=== PATIENT | female | born 1950 | race African-American/Black ===

== ENCOUNTER 2017-11-23 08:56 | Day surgery (SDC) | payer MEDICARE ==
[2017-11-23 09:11] LABS: Absolute Lymphocytes (CBC) 1.9 K/uL (0.7-4.9); Absolute Monocytes 0.6 K/uL (0.1-1.3); Absolute Neutrophil 5.1 K/uL (1.8-8.0); Basophils % 0.4 % (0-1.3); Eosinophils % 2.7 % (0-4.4); Hematocrit 38.3 % (36.0-45.0); Lymphocytes % 23.9 % (15.3-44.8); MCH 26.7 pg (27.0-35.0); MCV 78.4 fL (80-100); MPV 8.7 fL (7.6-11.3); Monocytes % 7.8 % (3.3-12.3); RBC Red Blood Cell Count 4.88 M/uL (3.86-4.86)
[2017-11-23] MEDS ORDERED: CEFAZOLIN/SWI 1gm 1 GM/10 ML SYR ONE (09:29)
[2017-11-23] MEDS ORDERED: Ringers Lactate 1,000 ML IV ONE (09:29)
--- NOTE | 2017-11-23 09:52 | EKG ---
Test Date: 2017-11-23 Test Time: 08:44:15 [employer] Advisor: AMINTA MEASUREMENT RESULTS: Intervals: Rate: 65 NH: 144 QRSD: 88 QT: 416 QTc: 432 [place]: P: 14 NH: 144 QRS: 1 T: 21 INTERPRETIVE STATEMENTS: Normal sinus rhythm Normal ECG No previous ECG available for comparison Electronically Signed On 11-23-17 09:51:30 CDT by Alexander Fraser
[2017-11-23] MEDS ORDERED: MIDAZOLAM HCL 2 MG/2 ML INJ ONE (09:53)
[2017-11-23] MEDS ORDERED: LIDOCAINE 2% MPF 5 ML VIAL ONE (09:53)
[2017-11-23] MEDS ORDERED: ROCURONIUM 50 MG/5 ML VIAL IV ONE (09:53)
[2017-11-23] MEDS ORDERED: FENTANYL CITR 250 MCG/5 ML ONE (09:53)
[2017-11-23] MEDS ORDERED: PROPOFOL 200 MG/20 ML VIAL IV ONE (09:53)
[2017-11-23 09:54] LABS: BUN Blood Urea Nitrogen 15 mg/dL (6-20); Bicarbonate 31 mEq/L (21-31); Glucose Level 105 mg/dL (65-120); Potassium 4.4 mEq/L (3.6-5.0); Sodium Level 141 mEq/L (135-145)
[2017-11-23] MEDS ORDERED: GLYCOPYRROLATE 0.2 MG/ML SYR ONE (10:38)
[2017-11-23] MEDS ORDERED: NEOSTIGMINE 1 MG/ML -5 ML SYRINGE ONE (10:39)
[2017-11-23] MEDS: MEPERIDINE HCL 50 MG/ML AMP ONE ×3 (10:51→11:10)
--- NOTE | 2017-11-23 11:08 | RAD REPORT ---
EXAM DESCRIPTION: RADOP - Outpt Chest Pa/Lat (2 Views) - 11/23/2017 8:52 am CLINICAL HISTORY: Abdominal pain, asthma. COMPARISON: 01/25/2014 FINDINGS: The lungs are clear. The heart is mildly to moderately enlarged in size. No displaced frac tures. Degenerative changes are present both shoulders. Thoracic spondylosis is noted.
[2017-11-23] MEDS: KETOROLAC 30 MG/ML INJ ONE ×2 (11:10→11:15)
[2017-11-23] MEDS ORDERED: HYDROCODONE/APAP 7.5/325 MG TAB ONE (12:57)
--- NOTE | 2017-11-23 13:20 | OP ---
Date of Procedure: 11/23/2017 Surgeon: Regino Melgar MD Postoperative Diagnosis: Nonhealing wound, abdomen, suture granuloma. Postoperative Diagnoses: Nonhealing wound, abdomen, suture granuloma. Procedure Performed: Excision of suture granuloma. Estimated Blood Loss: Minimal. Specimen: Suture granuloma. Finding: As above. Anesthesia: General. Complications: None. Disposition: The patient tolerated the procedure in stable condition, taken to Recovery in good gene ral condition. Operative Note: The patient was brought to the OR and placed in supine position. General anesthesia begun. The patient prepped in the usual sterile fashion. Marcaine 0.5% infiltrated for local. A 1 5-blade was used to make a 4 x 1 cm incision to excise this nonhealing wound down through the subcuta neous tissue and sent to Pathology as specimen. When the specimen was cut, it appeared to be a sutur e granuloma. Wound irrigated. Bleeding controlled with cautery. The flaps created and 2-0 chromic used to approximate the subcutaneous tissue and close the skin. Sterile dressing was applied. The patient was awakened and taken to [facility] in good general condition. AIRAM/GI Voice ID: [id number] Report ID: [id number]
[2017-11-23 13:25] VITALS: BP 133/78; TEMP 98; O2SAT 97
--- NOTE | 2017-11-23 13:25 | DS ---
Discharge Note: The patient will go to Day Surgery and home when stable. Disposition: Home. Condition: Stable. Discharge Instructions: Resume home medications and diet. Activity as tolerated. No heavy lifting. Remove outer dressing in 2 days. Shower. Keep the Steri-Strips on at all times. Followup my offi ce in a week. Call for appointment. Tylenol No. 3 one table q.4 p.r.n. pain, Keflex 500 mg p.o. q.6 h. AIRAM/GI Voice ID: [id number] Report ID: [id number]
== END 2017-11-23 13:11 | disposition home or self-care (01) ==
LOC: OR 08:56
PROVIDERS: ATTEND Surgery
PROC: 0JB80ZZ Excision of Abdomen Subcutaneous Tissue and Fascia, Open Approach (ICD-10-PCS; principal; 2017-11-23 10:00)
DX: L92.9 Granulomatous disorder of the skin and subcutaneous tissue, unspecified (principal); L98.499 Non-pressure chronic ulcer of skin of other sites with unspecified severity; E66.9 Obesity, unspecified; J45.909 Unspecified asthma, uncomplicated; I10 Essential (primary) hypertension; Z80.3 Family history of malignant neoplasm of breast; Z80.42 Family history of malignant neoplasm of prostate; Z80.0 Family history of malignant neoplasm of digestive organs
CPT/HCPCS: 10120; 36415; 71046; 80048; 85025; 88304; 93005; J0690; J2175; J2250; J2710

== ENCOUNTER 2018-02-27 18:50 | Inpatient (IN) | payer MEDICARE ==
[2018-02-27] MEDS ORDERED: Morphine 2 MG/2 ML SYR IV PRN (19:33)
[2018-02-27] MEDS ORDERED: ONDANSETRON 4 MG/2 ML VIAL IV PRN (19:33)
[2018-02-27 19:51] VITALS: BMI 42.2
[2018-02-27 19:56] LABS: Absolute Lymphocytes (CBC) 1.3 K/uL (0.7-4.9); Absolute Monocytes 1.1 K/uL (0.1-1.3); Absolute Neutrophil 11.8 K/uL (1.8-8.0); Basophils % 0.5 % (0-1.3); Eosinophils % 0.8 % (0-4.4); Hematocrit 36.6 % (36.0-45.0); Lymphocytes % 9.1 % (15.3-44.8); MCH 26.9 pg (27.0-35.0); MCV 78.9 fL (80-100); MPV 8.1 fL (7.6-11.3); Monocytes % 7.6 % (3.3-12.3); RBC Red Blood Cell Count 4.64 M/uL (3.86-4.86)
[2018-02-27 20:02] LABS: Protime INR 1.31
[2018-02-27 20:45] LABS: Urine Appearance CLOUDY; Urine Bilirubin NEGATIVE (NEG); Urine Blood 2+ (NEG); Urine Color DK YELLOW; Urine Glucose NEGATIVE (NEG); Urine Protein 1+ (NEG); Urine Specific Gravity 1.025 (1.005-1.030)
[2018-02-27 20:46] LABS: Albumin 3.2 g/dL (3.4-5.0); Bilirubin Total 0.5 mg/dL (0.2-1.0); Magnesium 2.8 mg/dL (1.8-2.4); Potassium 3.9 mmol/L (3.5-5.1); Protein, Total 8.1 g/dL (6.4-8.2); Thyroid Stimulating Hormone 1.62 uIU/mL (0.36-3.74)
[2018-02-27 20:52] LABS: Urine RBC 20-50 /HPF (NONE SEEN)
[2018-02-27 20:53] LABS: Urine Bacteria 20-50 /HPF (<20); Urine Culture Reflex Order NOT NEEDED
[2018-02-27] MEDS ORDERED: CEFEPIME 1 GM/VIAL IV SCH (21:00)
--- NOTE | 2018-02-27 21:07 | RAD REPORT ---
EXAM DESCRIPTION: RAD - Chest Pa And Lat (2 Views) - 02/27/2018 8:58 pm CLINICAL HISTORY: acute cholecystitis Chest pain. COMPARISON: CHEST PA AND LAT 2 VIEW dated 01/25/2014; CHEST PA AND LAT 2 VIEW dated 03/06/2012CHEST PA AND LAT 2 VIEW dated 01/25/2014; CHEST PA AND LAT 2 VIEW dated 03/06/2012; Outpt Chest Pa/Lat (2 Views) dated 11/23/2017 FINDINGS: Mild interstitial pulmonary edema is noted. The heart is mildly prominent size. No displac ed fractures. Moderate thoracic spondylosis. IMPRESSION: Mild CHF/ volume overload pattern.
[2018-02-27] MEDS ORDERED: MORPHINE 2 MG/ML SYR ONE (22:07)
[2018-02-27] MEDS ORDERED: CEFTRIAXONE/SWI 1gm 0 GM/0 ML SYR ONE (22:08)
[2018-02-27] MEDS ORDERED: CEFEPIME 1 GM/100 ML BAG IV ONE (22:13)
[2018-02-27] MEDS: D5 0.9 NS 1,000 ML IV SCH (22:25)
[2018-02-28] MEDS ORDERED: MORPHINE 2 MG/ML SYR ONE (03:32)
--- NOTE | 2018-02-28 04:13 | HP ---
Date of Admission: 02/27/2018 Chief Complaint: Fever, chills, abdominal pain. History Of Present Illness: A 67-year-old female patient, came into office with 3-4 days history of fever with chills and some right upper quadrant abdominal pain. Denies any cough, cold, or congestio n. No sore throat, no nausea, no vomiting, no diarrhea, no bleeding. Her pain has been intermittent . No aggravating or relieving factor, no radiation of pain. No other associated symptoms. After jonathan austin was evaluated in our office, she was admitted to the hospital with diagnosis of acute cholecystitis . Further appropriate testing was ordered for her. Allergies: NO KNOWN ALLERGIES. Medications: She takes losartan 50 mg p.o. daily, ProAir inhaler as needed. Review of Systems: GI: As mentioned above. Constitutional: As mentioned above. All other systems reviewed and negative. Social History: Negative for smoking, alcohol use. Family History: Significant for breast cancer and prostate cancer. Past Surgical History: Significant for surgery for cervical cancer in 1976, hernia repair, and carpa l tunnel release in 2016. Past Medical History: Significant for hypertension, hyperlipidemia, and mild intermittent asthma. Physical Examination: Vital Signs: Her temperature at office was 100.1 degrees Fahrenheit, pulse 102, respiratory rate 16, blood pressure 116/72, weight 231 pounds, height 61.5 inches. General: Awake, alert, oriented, not in distress. HEENT: Head atraumatic, normocephalic. Conjunctivae nonerythematous. Sclerae white. Mouth, no thr ush or edema noted. Ears/Nose, no mass, lesion, discharge noted. Neck: Supple. No JVD, lymph nodes, bruit, thyromegaly noted. Lungs: Bilateral good equal air entry. Clear to auscultation. No rhonchi. No rales. Heart: Normal heart sounds, no murmur or gallop. Abdomen: Soft. Bowel sounds normal. No guarding, rigidity, or distention. No hepatosplenomegaly. The patient does have right upper quadrant tenderness. No rebound tenderness. Extremities: No leg edema. No calf tenderness. Skin: No rash, ulcer, cellulitis. Lymphatics: No lymph node enlargement in neck, supraclavicular, infraclavicular region. Neuro: No focal neurological deficit. Chest: Unremarkable. External Genitalia: Deferred. Rectal: Deferred. Laboratory Data: Chest x-ray was reported as mild CHF pattern which I disagree with that clinically. The patient does not have any evidence of congestive heart failure. White count 14.4, hemoglobin 1 2.5, platelets 395. INR 1.31. Sodium 140, potassium 3.9, chloride 104, bicarb 30, BUN 15, creatinin e 0.90, glucose 96, magnesium 2.8. Liver function tests unremarkable. Amylase 48, lipase 87, TSH 1. 62, procalcitonin 0.23. Urinalysis; 3+ esterase, wbc loaded, bacteria 20-50, 2+ blood. Impression: 1.Acute cholecystitis. 2.Urinary tract infection. 3.Hypertension. 4.Hyperlipidemia. 5.Mild intermittent asthma. Plan: Admit the patient to hospital for further evaluation and management of this problem. The edison ent is appropriate for inpatient and is expected to spend 2 midnights in hospital. We will consult Kanwal Melgar from General Surgery. The patient will be on clear liquid diet today. Keep her n.p.o. afte r midnight. We will get abdominal ultrasound done tomorrow morning and start the patient on empiric IV antibiotics, cefepime. Pain medication will be ordered. SCD was ordered for DVT prophylaxis. I will see her tomorrow for followup. Details and plan of treatment di scussed with her. NELA/MODL Voice ID: [id number]
[2018-02-28] MEDS ORDERED: CEFEPIME 1 GM/100 ML BAG IV SCH ×2 (05:00→21:00)
[2018-02-28] MEDS ORDERED: PNEUMOCOCCAL VACCINE 0.5 ML IMVAC ONE (08:00)
--- NOTE | 2018-02-28 08:13 | RAD REPORT ---
EXAM DESCRIPTION: US - Abdomen Exam Complete - 02/28/2018 7:35 am CLINICAL HISTORY: Abdominal pain. acute cholecystitis COMPARISON: No comparisons FINDINGS: Diffusely heterogenous liver echotexture is seen. No focal liver lesions or intrahepatic b iliary dilatation is seen. The gallbladder contains a 9 mm nonshadowing stone or sludge ball. No gallbladder wall thickening or pericholecystic fluid is seen. Common bile duct is normal in caliber measuring 5 millimeters. Moderate right-sided hydronephrosis is seen. 2.7 x 2.5 cm left renal cyst is present. No left-sided h ydronephrosis present. The spleen is normal in size measuring 10-11 cm. The pancreas and aorta are obscured by bowel gas. The visualized aspects of the IVC are grossly normal. IMPRESSION: Moderate right hydronephrosis. Diffusely heterogenous liver echotexture likely indicating underlying chronic inflammation or fatty i nfiltration. 9 mm nonshadowing stone or sludge ball in the gallbladder without evidence of acute cholecystitis.
--- NOTE | 2018-02-28 10:56 | RAD REPORT ---
EXAM DESCRIPTION: CT - Stone Protocol - 02/28/2018 10:12 am CLINICAL HISTORY: Abdominal pain. Right flank pain COMPARISON: February 28, 2018 ultrasound TECHNIQUE: Computed axial tomography of the abdomen pelvis was obtained without oral or IV contrast. Lack of IV and oral contrast limits evaluation of solid organs, bowel, and vessels. Coronal reformat katharine images were obtained and reviewed. All CT scans are performed using dose optimization technique as appropriate and may include automated exposure control or mA/KV adjustment according to patient size. FINDINGS: Moderate right hydronephrosis is present. The right ureter is dilated. Within the right pe lvis are many calcifications. Although it is difficult to distinguish the phleboliths versus potentia l ureteral calculi it appears that there are multiple calculi within the mid to distal right ureter. Stranding is present within the fat adjacent to the proximal and mid right ureter. A left renal calculus is not seen. A 2 centimeter low-density mass within the left kidney is nonspeci fic without IV contrast. It may represent a cyst. A 7 millimeter low-density area within the right lobe of the liver is nonspecific without IV contrast but probably represents cyst. Spleen, pancreas and adrenals appear grossly normal There is no evidence of diverticulitis. The appendix appears normal A hysterectomy has been performed. The bones have a mottled appearance. Spondylosis involves the lumbar spine resulting in spinal stenos is IMPRESSION: Moderate right hydronephrosis and right hydroureter. There probably are several calculi within the mid to distal right ureter. The bones have a mottled appearance. This could be secondary an infiltrative process.
--- NOTE | 2018-02-28 11:46 | CON ---
Date of Consultation: 02/28/2018 Reason: Abdominal pain. History Of Present Illness: The patient is a 67-year-old female, who presents with approximately 3-d ay history of right-sided abdominal pain. No nausea and no vomiting. No diarrhea. No constipation. No blood in her stool. Occasional dysuria. No hematuria. No sore throat, runny nose, cough, head aches, or dizziness. No chest pain and no fever or chills. Review of Systems: Otherwise unremarkable. Past Medical History: Significant for hypertension, hyperlipidemia, asthma. Past Surgical History: Cervical cancer surgery, hernia repair, carpal tunnel release. Allergies: NONE. Social History: She does not smoke or drink. Family History: Significant for breast cancer and prostate cancer. Physical Examination: Vital Signs: Significant for temperature of 99.3, blood pressure 161/81, pulse is 98 and respiration s are 18. General: She is awake, alert, oriented x3. Head and neck: Cranial nerves 2 through 12 grossly within normal limits. No neck masses. No JVD. Throat clear. Neck is supple. Chest: Clear. Heart: S1, S2. Abdomen: Soft. Minimal discomfort in the right upper quadrant. There is no tenderness in the right middle and right lower quadrant. There is no peritonitis. There is no CVA tenderness. Extremities: Adequately perfused. Nontender. Neuro: Nonfocal. Diagnostic Data: Ultrasound of the abdomen reviewed with Dr. Zarate. The patient has some sludge in t he gallbladder; however, the patient was moderate hydro on the right side. Laboratory Data: Significant for white count of 14.4, with a left shift. INR is 1.31. Chemistry re viewed. LFTs, amylase, and lipase are within normal limits and UA shows esterase positive, wbc's load ed, 2+ blood bowel, bacteria is 20-50. Assessment: A 67-year-old female with abdominal pain, hydronephrosis, and cholelithiasis. Recommendations: At this time, the patient needs to be on antibiotics. We will get a CT stone darshana col to see if there is a stone in the distal ureter and we will get a urology consultation to evaluat e this patient as well. At this point, from a general surgery standpoint, the patient does not need any intervention. please re-consult rio ALEGRIA/GI Voice ID: [id number] Report ID: [id number]
[2018-02-28] MEDS ORDERED: Ringers Lactate 1,000 ML IV ONE (12:43)
[2018-02-28] MEDS ORDERED: GENTAMICIN SULF 80 MG/2ML INJ ONE (12:43)
[2018-02-28] MEDS ORDERED: NA CHLORIDE 0.9% 100 ML IV ONE (12:44)
[2018-02-28] MEDS ORDERED: ACETAMINOPHEN 120 MG/SUPP PR ONE (12:49)
[2018-02-28] MEDS ORDERED: GENTAMICIN 100 MG/100 ML BAG 100 MG/100 ML BAG IV ONE (12:53)
[2018-02-28] MEDS ORDERED: LIDOCAINE 2% MPF 5 ML VIAL ONE (13:06)
[2018-02-28] MEDS ORDERED: MIDAZOLAM HCL 2 MG/2 ML INJ ONE (13:06)
[2018-02-28] MEDS ORDERED: PROPOFOL 200 MG/20 ML VIAL IV ONE (13:06)
[2018-02-28] MEDS ORDERED: FENTANYL CITR 100 MCG/2 ML ONE (13:06)
--- NOTE | 2018-02-28 14:15 | RAD REPORT ---
EXAM DESCRIPTION: RAD - Urography Retrograde - 02/28/2018 1:46 pm CLINICAL HISTORY: Abdominal pain. FINDINGS: A single fluoroscopic spot image is submitted. The urethra has been cannulated. . The exam ination was performed by Dr. Yen. Please refer to Dr. Yen's report for additional findings.
[2018-02-28] MEDS: D5 0.9 NS 1,000 ML IV SCH (15:47)
[2018-02-28] MEDS: MORPHINE 4 MG/ML SYR IV PRN ×2 (15:53→20:08)
--- NOTE | 2018-02-28 16:53 | CON ---
History Of Present Illness: This is a 67-year-old female patient, who came into the hospital with 3- 4 day history of fever and chills, right upper quadrant pain. Ultrasound showed some gallbladder slu dge, but it did show right hydronephrosis. We got a stone CT this morning, it shows right hydronephro sis. There are some calcifications around the iliac ureter area. Difficult to tell if it is a uroli thiasis or not, but because of her hydronephrosis and her pain and fevers and chills, I believe she n eeds to go ahead and get a stent placed to drain the hydronephrotic system. General surgery has seen her, cleared her from the gallbladder perspective. Do not believe this is causing the pain, so she may have some pyelonephritis going on. Her temperature is now 100. She got an additional dose of ge ntamicin. She is on cefepime also. We will try to be as judicious as possible and try to aspirate b efore injecting the contrast to try to prevent her from getting bacteremic. She was given all the ge neral information, alternatives, and risks and wishes to proceed. Allergies: NO KNOWN DRUG ALLERGIES. Medications: She takes losartan 50 mg at home and ProAir inhaler as needed. Social History: Negative for smoking, alcohol use, or drug use. Family History: Significant for breast cancer, prostate cancer. Past Surgical History: Significant for cervical cancer surgery in 1976, hernia repair, and carpal tu nnel release in 2017. Past Medical History: Significant for hypertension, hyperlipidemia, and intermittent asthma. Review of Systems: As mentioned above. Ten point review of system otherwise unremarkable. Physical Examination: Vital Signs: 100.3, pulse 88, respirations 18, BP 144/80, and sats 97%. General: She awake, alert, oriented, in no acute distress. HEENT: Atraumatic, normocephalic. Neck: Supple. Lungs: Clear. Heart: S1, S2. Abdomen: Soft, nontender. extremities: no tenderness. No edema. Skin: No rashes. Neurologic: No focal defects. Laboratory Data: White count was 14,000, H and H 12 and 37, and platelet 395. Coagulation; PT 15.5, INR 1.3, and PTT 30.2. Chemistry; sodium 140, potassium 3.9, chloride 104, carbon dioxide 30, BUN 1 5, creatinine 0.9, GFR is 76, glucose 96, calcium 9.0, magnesium 2.8, and total bilirubin 0.5. AST n ormal. Urine study shows 20-50 rbc's, white cells loaded, bacteria 20-50. Her cultures pending. Assessment: Right hydronephrosis, fever, chills, right flank pain. Not sure if she has a stone in t he ureter or not. We are going to proceed with cystoscopy and right stent placement to drain the sys tem. All the general information, alternatives, and risks were discussed and she wishes to proceed. We will move her up on the OR schedule due to a fever of 100, so we can get this done as soon as pos sukhwinder. ALICIA/GI Voice ID: [id number] Report ID: [id number]
[2018-02-28] MEDS ORDERED: POTASSIUM 25 MEQ EFFERV TAB PO ONE (18:30)
[2018-02-28] MEDS ORDERED: CEFEPIME/SWI 1gm 1 GM/10 ML SYR IV SCH (21:00)
--- NOTE | 2018-03-01 00:11 | PN ---
Date of Progress Note: 02/28/2018 Subjective: The patient was seen this morning for followup. The patient did not have any new compla ints. She has no urinary complaints at all. Abdominal pain problem remains unchanged. Objective: Vital Signs: Reviewed. HEENT Examination: Unremarkable. Lungs: Clear to auscultation. Heart: Heart sounds normal. Abdomen: Soft. Bowel sounds normal. No guarding, rigidity, or distention. Presence of right upper quadrant tenderness, unchanged from yesterday. No rebound tenderness. Extremities: No leg edema. Laboratory Data: Abdominal ultrasound shows some sludge in the gallbladder, but normal appearing gal lbladder wall and it does show evidence of right-sided hydronephrosis. Impression: 1.Acute pyelonephritis. 2.Right-sided hydronephrosis. 3.Hypertension. Plan: The patient's abdominal ultrasound shows evidence of some sludge type of material in gallbladd er but no evidence of any gallbladder wall thickening or pericholecystic fluid, and Dr. Melgar did chitra l me and informed me about that, and he does not believe that the patient has any acute cholecystitis and I agree with that. Abdominal ultrasound findings reviewed and Urology consultation was obtained from Dr. Yen, and he did take the patient to surgery and placed a stent in the right ureter. He d id detect some pus type of discharge from the right ureter when he was trying to put the stent in, an d during that procedure he also felt like there was probably stone type of material in the right uret er which he will have to handle it later on. Urine culture result is pending. What we believe now i s that the patient has acute pyelonephritis and she does not have any evidence of acute cholecystitis . She will need to continue IV antibiotics currently until we get the final report on urine culture and then at appropriate time we will send her home with culture specific antibiotics for 2-3 weeks wi th outpatient followup with Dr. Yen. We will continue IV antibiotic for 3-5 days before we dischar ge her to go home with appropriate oral antibiotics. I will see her tomorrow for followup. NELA/MODL Voice ID: [id number] Report ID: [id number]
[2018-03-01] MEDS: D5 0.9 NS 1,000 ML IV SCH (01:48)
[2018-03-01] MEDS: ACETAMINOPHEN 500 MG TAB PO PRN ×3 (01:48→20:26)
[2018-03-01 08:08] LABS: Absolute Lymphocytes (CBC) 1.6 K/uL (0.7-4.9); Absolute Neutrophil 7.8 K/uL (1.8-8.0); Basophils % 0.4 % (0-1.3); Eosinophils % 2.3 % (0-4.4); Hematocrit 35.6 % (36.0-45.0); Lymphocytes % 14.7 % (15.3-44.8); MCH 27.2 pg (27.0-35.0); MCV 79.5 fL (80-100); Monocytes % 9.5 % (3.3-12.3); RBC Red Blood Cell Count 4.47 M/uL (3.86-4.86)
[2018-03-01 08:20] LABS: Magnesium 2.4 mg/dL (1.8-2.4); Potassium 4.3 mmol/L (3.5-5.1)
--- NOTE | 2018-03-01 10:23 | RAD REPORT ---
EXAM DESCRIPTION: RAD - Hip Bilateral With Pelvis - 03/01/2018 10:08 am CLINICAL HISTORY: Abnormal radiologic exam COMPARISON: February 29, 2008 CT FINDINGS: No fracture or dislocation is seen. Mild osteoarthritis involves the hips No discrete bony lesion is seen. No significant bony abnormality is suspected. However, this should b e correlated with appropriate lab values.
[2018-03-01] MEDS: CEFEPIME/SWI 1gm 1 GM/10 ML SYR IV SCH ×2 (10:24→20:27)
--- NOTE | 2018-03-01 10:25 | RAD REPORT ---
EXAM DESCRIPTION: RAD - Lumbar Spine 3 Views - 03/01/2018 10:08 am CLINICAL HISTORY: Abnormal radiologic exam FINDINGS: Mild anterior subluxation of L4 on L5 is present. Osteoarthritis involves the facet joints of the lower lumbar spine. Mild to moderate spondylosis is p resent. Prominent sclerosis involves the facet joints of the lumbar spine. This likely is related to osteoart hritis. The bones are osteoporotic. A discrete bony lesion is not seen.
--- NOTE | 2018-03-01 10:27 | RAD REPORT ---
EXAM DESCRIPTION: RAD - Thoracic Spine Ap/Lat - 03/01/2018 10:08 am CLINICAL HISTORY: Abnormal radiologic exam FINDINGS: Mild kyphosis of the thoracic spine is seen. The bones are osteoporotic. Bridging osteophy pratima span many thoracic vertebra compatible with diffuse idiopathic skeletal hyperostosis. The bones are osteoporotic. No fracture is seen. No discrete bony lesion is visualized. Mild scoliosis is present
--- NOTE | 2018-03-01 15:33 | PN ---
The patient is doing well. Torrez catheter came out this morning. She is afebrile, stable. Her whit e count is down to 10.6 from 14.7, however, her cultures did not grow anything significant, so we hav e to send her home on some type of empirical antibiotics. Shooting to follow up for further evaluati on of her kidneys in about 2-4 weeks. The patient may need ureteroscopy to evaluate the ureter. She may possibly have a stone in the mid ureter and at that time, the stent can be removed. ALICIA/GI Voice ID: [id number] Report ID: [id number]
--- NOTE | 2018-03-02 02:01 | PN ---
Date of Progress Note: 03/01/2018 Subjective: The patient was seen this morning for followup. She is feeling much better after surger y done by Dr. Yen yesterday. No nausea or vomiting. Objective: Vital Signs: Reviewed. HEENT Examination: Unremarkable. Lungs: Clear to auscultation. Heart: Heart sounds normal. Abdomen: Soft, bowel sounds normal. No guarding, rigidity, tenderness, or distention. Extremities: No leg edema. Laboratory Data: White count today 10.6, hemoglobin 12.2, platelets 401. Sodium 141, potassium 4.3, chloride 106, bicarb 30. BUN 13, creatinine 0.90, glucose 87. Vitamin D level, less than 7. PTH l evel 81. X-ray of spine, hip, and pelvis done today; bones were reported to be osteoporotic, presenc e of bridging osteophytes, mild scoliosis, discrete bony lesion was not seen on the spine x-ray. Hip and pelvis x-ray also show some osteoarthritis of hips, no discrete bony lesion noted. Reason for t his x-ray that was done today was because on CAT scan report radiologist had mentioned bones have mot tled appearance. Impression: 1.Acute pyelonephritis. 2.Right ureteral stone with hydronephrosis. 3.Vitamin D deficiency. 4.Hypertension. Plan: We will go ahead and continue current medications and antibiotic. When the patient was admitt ed to the hospital, she was started on cefepime 1 g IV piggyback every 12 hours and today when I was doing her chart review I found out that cefepime was listed as 1 g IV piggyback once a day. I did as k the charge nurse to look into that. After she investigated, she informed me that the day I had ord ered cefepime on the day of admission somehow pharmacist decided to change the dose on his or her own without communicating with me. I was never notified or asked about this, and I am not even sure why pharmacist changed the dose. So, patient's creatinine is normal today; it is same as what it was wh en she came in, and the patient will need to continue this dose 2 times a day as per order and I have requested charge nurse to communicate with the choir director regarding these important concerns about pharmacist changing antibiotics without physician's permission. We will see her tomorrow for patrick valentine. The patient will need to be on vitamin D supplement. We will start that and on outpatient basis we will have to get a bone density test done to evaluate for osteoporosis. Possible discharge to go home in next day or two days. Considering culture has remained negative, we will have to use e mpiric antibiotic and we will not be able to do any culture specific antibiotics for her. NELA/MODL Voice ID: [id number] Report ID: [id number]
[2018-03-02] MEDS ORDERED: levoFLOXacin 500 MG TAB PO ONE (07:58)
[2018-03-02] MEDS: CEFEPIME/SWI 1gm 1 GM/10 ML SYR IV SCH (08:28)
[2018-03-02 08:41] VITALS: BP 179/94; TEMP 98.1
[2018-03-02 11:24] VITALS: O2SAT 96
--- NOTE | 2018-03-03 04:55 | DS ---
Date of Discharge: 03/02/2018 Disposition: Discharged to go home. Physical Examination: HEENT: Unremarkable. Lungs: Clear to auscultation. Heart: Sounds normal. Abdomen: Soft. Bowel sounds normal. No guarding, rigidity, tenderness, or distention. Extremities: No leg edema. Hospital Course: This is a 67-year-old female patient, admitted to the hospital with fever, chills, abdominal pain. Please see dictated H and P for more information. After the patient was evaluated a t the office, she was admitted to the hospital. My initial impression was that we probably were deal ing with acute cholecystitis. She was admitted to the hospital. IV fluid and IV antibiotic were sta rted. The patient's urinalysis was abnormal consistent with urinary tract infection. The patient's urine culture was done upon admission prior to starting antibiotics and that did not grow any specifi c bacteria. Day after admission, she had abdominal ultrasound done which showed evidence of right-si ded hydronephrosis and some sludge in the gallbladder but no evidence of gallbladder wall thickening or pericholecystic fluid. General surgeon, Dr. Melgar, was consulted and after abdominal ultrasound h e recommended Urology consultation and Dr. Yen was consulted and he took the patient to surgery and placed a stent in the right ureter. The patient probably has some stone in the right ureter which Kanwal Yen will handle it later on. When Dr. Yen was doing the procedure, he did note some purulent type of discharge coming out of the right ureter. He also sent culture during the time of surgery wh ich also came back negative. The patient's condition started improving after surgery. Her abdominal pain resolved. She is tolerating diet very well, ambulating well. CAT scan of the abdomen was done during this hospitalization. Radiologist did report that the patient's bones that he noted looked a bnormal and he was concerned about what he describes as some infiltrative process. The patient does not have any history of any malignancy at all. I did talk to radiologist today and we did obtain x-r ay of lumbosacral spine as well as bilateral hip and pelvis, and x-ray shows some changes of osteopor osis and arthritis but no other abnormality noted on x-ray and I did talk to radiologist about that. His concern was that we need to rule out renal osteodystrophy. Patient does not have any chronic ki dney disease. Her parathyroid hormone level that was done during this hospitalization was normal. V itamin D level was less than 7, so it is almost undetectable. TSH was normal. I did talk to patient about all these findings and suggested that she should start to take vitamin D supplement as prescri bed, and instead of taking calcium supplement she will get adequate amount of calcium from her normal dietary source with help of milk, yogurt, broccoli, cheese, etc.; that she should have one serving o f each one on a daily basis. She also should have a bone density test to evaluate for osteoporosis a nd she will call office to get that scheduled. The patient will follow up with Dr. Yen next week a nd she will follow up at my office in 2-3 weeks. She does not require any strong pain medication. I have advised her to take Tylenol for pain upon discharge. She did have some constipation that got r elieved yesterday. Final Diagnoses: 1.Acute pyelonephritis. 2.Right ureter stone with hydronephrosis. 3.Gallstones without cholecystitis without obstruction. 4.Vitamin D deficiency. 5.Rule out osteoporosis. 6.Hypertension. 7.Hyperlipidemia. 8.Mild intermittent asthma. Discharge Medications And Instructions: 1.Continue losartan as you were taking before. 2.Start to take Levaquin 500 mg p.o. daily for 2 weeks and vitamin D 50672 units 1 capsule by mouth once a week for 3 months, and both of these prescriptions were sent to her pharmacy from my office. 3.Follow up at my office in [address] Yen next week. 5.The patient may use Tylenol 500 mg 2 tablets by mouth 2 times a day as needed for pain. NELA/MODL Voice ID: [id number] Report ID: [id number]
== END 2018-03-02 10:57 | disposition home or self-care (01) | DRG 690 ==
LOC: 4TH 19:02
PROVIDERS: ADMIT Internal Medicine; ATTEND Internal Medicine
PROC: BT1DYZZ Fluoroscopy of Right Kidney, Ureter and Bladder using Other Contrast (ICD-10-PCS; 2018-02-28)
PROC: 0T768DZ Dilation of Right Ureter with Intraluminal Device, Via Natural or Artificial Opening Endoscopic (ICD-10-PCS; principal; 2018-02-28 14:15)
DX: N13.6 Pyonephrosis (principal); K80.80 Other cholelithiasis without obstruction; M81.0 Age-related osteoporosis without current pathological fracture; I10 Essential (primary) hypertension; E78.5 Hyperlipidemia, unspecified; J45.20 Mild intermittent asthma, uncomplicated; M47.817 Spondylosis without myelopathy or radiculopathy, lumbosacral region; M16.0 Bilateral primary osteoarthritis of hip; Z85.41 Personal history of malignant neoplasm of cervix uteri
CPT/HCPCS: 36415; 71046; 72070; 72100; 73521; 74176; 74420; 76377; 76700; 80048; 80053; 81001; 82150; 82306; 83690; 83735; 83970; 84145; 84443; 85025; 85610; 85730; 87070; 87086; 87088; 87176; 87205; 90670; G0009; J0692; J0696; J1580; J2250; J2270; J3010; Q9967

== ENCOUNTER 2018-03-14 08:20 | Emergency (ER) | payer MEDICARE ==
[2018-03-14 09:27] LABS: Urine Blood 3+ (NEG); Urine Glucose NEGATIVE (NEG); Urine Protein 1+ (NEG); Urine Specific Gravity 1.015 (1.005-1.030)
[2018-03-14 09:29] LABS: Urine Bacteria 20-50 /HPF (<20); Urine Culture Reflex Order NOT NEEDED
--- NOTE | 2018-03-14 09:36 | EDPHYS ---
Physician Documentation [facility] Name: Naeem Gonzales Age: 67 yrs Sex: Female : 1950 Arrival Date: 03/14/2018 Time: 08:21 Bed 8 Private MD: Dieudonne Sandhu ED Physician John Sanchez HPI: 03/14 08:50 This 67 yrs old Black Female presents to ER via Ambulatory with complaints of Urinary rn Incontinence. 08:50 The patient presents with urinary symptoms, incontinence. Onset: The symptoms/episode rn began/occurred last night, at 23:00. Modifying factors: The symptoms are alleviated by nothing, the symptoms are aggravated by nothing. Associated signs and symptoms: Pertinent positives: urinary frequency, Pertinent negatives: dysuria, fever. Severity of symptoms: At their worst the symptoms were moderate, in the emergency department the symptoms are unchanged. The patient has not experienced similar symptoms in the past. Reports had ureteral stent placed by Dr. Yen 2 weeks ago, has been doing well, noticed urinary incontinence since 11 PM last night, unable to control at all, no fever, no abd pain, using towels to collect urine.. Historical: - Allergies: 08:34 No Known Allergies; tw2 - Home Meds: 08:34 losartan oral oral [Active]; ergocalciferol (vitamin D2) miscellaneous [Active]; tw2 - PMHx: 08:34 Hypertension; tw2 - Immunization history:: Adult Immunizations up to date. - Social history:: Smoking status: Patient/guardian denies using tobacco. - Ebola Screening: : Patient denies travel to an Ebola-affected area in the 21 days before illness onset. - Family history:: not pertinent. - Hospitalizations: : The patient was recently seen at [facility]. ROS: 08:50 Constitutional: Negative for fever, chills, and weight loss, Eyes: Negative for injury, rn pain, redness, and discharge, Neck: Negative for injury, pain, and swelling, Cardiovascular: Negative for chest pain, palpitations, and edema, Respiratory: Negative for shortness of breath, cough, wheezing, and pleuritic chest pain, Abdomen/GI: Negative for abdominal pain, nausea, vomiting, diarrhea, and constipation, Back: Negative for injury and pain, : + urinary incontinence MS/Extremity: Negative for injury and deformity, Neuro: Negative for headache, weakness, numbness, tingling, and seizure. Exam: 08:50 Constitutional: This is a well developed, well nourished patient who is awake, alert, rn and in no acute distress. Head/Face: Normocephalic, atraumatic. Eyes: Pupils equal round and reactive to light, extra-ocular motions intact. Lids and lashes normal. Conjunctiva and sclera are non-icteric and not injected. Cornea within normal limits. Periorbital areas with no swelling, redness, or edema. ENT: Nares patent. No nasal discharge, no septal abnormalities noted. Oropharynx with no redness, swelling, or masses, exudates, or evidence of obstruction, uvula midline. Mucous membranes moist. Abdomen/GI: Soft, non-tender, with normal bowel sounds. No distension or tympany. No guarding or rebound. No evidence of tenderness throughout. Back: No spinal tenderness. No costovertebral tenderness. Full range of motion. MS/ Extremity: Pulses equal, no cyanosis. Neurovascular intact. Full, normal range of motion. Equal circumference. Neuro: Awake and alert, GCS 15, oriented to person, place, time, and situation. Cranial nerves II-XII grossly intact. Motor strength 5/5 in all extremities. Sensory grossly intact. Cerebellar exam normal. Vital Signs: 08:35 BP 154 / 78; Pulse 83; Resp 16; Pulse Ox 98% on R/A; Pain 0/10; ss 09:29 BP 153 / 81; Pulse 77; Resp 17; Pulse Ox 100% on R/A; tw2 MDM: 08:43 Patient medically screened. rn 09:33 Differential diagnosis: urinary tract infection, stent migration. Data reviewed: vital rn signs, nurses notes, lab test result(s), and as a result, I will discharge patient. Counseling: I had a detailed discussion with the patient and/or guardian regarding: the historical points, exam findings, and any diagnostic results supporting the discharge/admit diagnosis, lab results, the need for outpatient follow up, to return to the emergency department if symptoms worsen or persist or if there are any questions or concerns that arise at home. Response to treatment: the patient's symptoms have markedly improved after treatment, and as a result, I will discharge patient. Special discussion: I discussed with the patient/guardian in detail that at this point there is no indication for admission to the hospital. It is understood, however, that if the symptoms persist or worsen the patient needs to return immediately for re-evaluation. ED course: Evaluated by Dr. Yen in ER, stent removed with improvement of symptoms, not a clean catch specimen, will dc home with Dr. Yen f/u, Dr. Yen states can be discharged. . 03/14 08:47 Order name: Urine Microscopic Only; Complete Time: 09:33 rn 03/14 08:47 Order name: Urine Culture rn 03/14 08:47 Order name: Urine Dipstick-Ancillary (obtain specimen); Complete Time: 08:53 rn 03/14 08:51 Order name: Urine Dipstick--Ancillary (enter results) bd 03/14 08:52 Order name: Urine Dipstick-Ancillary; Complete Time: 09:33 EDMS Administered Medications: No medications were administered Disposition: 03/14/18 09:35 Discharged to Home. Impression: Ureteral Stent Migration, Unspecified urinary incontinence. - Condition is Stable. - Discharge Instructions: Urinary Incontinence, Ureteral Stent Implantation, Care After. - Medication Reconciliation Form, Thank You Letter, Antibiotic Education, Prescription Opioid Use form. - Follow up: Watson Yen MD; When: As needed; Reason: Recheck today's complaints, Re-evaluation by your physician. - Problem is new. - Symptoms have improved. Signatures: Dispatcher [employer] EDMS John Sanchez MD MD rn Smirch, Shelby, RN RN ss Maricruz Aiken RN RN tw2 Corrections: (The following items were deleted from the chart) 09:48 09:35 03/14/2018 09:35 Discharged to Home. Impression: Ureteral Stent Migration; tw2 Unspecified urinary incontinence. Condition is Stable. Forms are Medication Reconciliation Form, Thank You Letter, Antibiotic Education, Prescription Opioid Use. Follow up: Watson Yen; When: As needed; Reason: Recheck today's complaints, Re-evaluation by your physician. Problem is new. Symptoms have improved. rn
--- NOTE | 2018-03-14 09:36 | ER ---
Nurse's Notes [facility] Name: Naeem Gonzales Age: 67 yrs Sex: Female : 1950 Arrival Date: 03/14/2018 Time: 08:21 Bed 8 Private MD: Dieudonne Sandhu Diagnosis: Ureteral Stent Migration;Unspecified urinary incontinence Presentation: 03/14 08:35 Presenting complaint: Patient states: Had renal stent placed by Dr. Yen recently and ss since last night has been incontinent of urine. Pt denies pain or blood in urine. Pt reports Dr. Yen's office told her to come to the ER because Dr. Yen was here. Transition of care: patient was not received from another setting of care. Onset of symptoms was March 14, 2018. Risk Assessment: Do you want to hurt yourself or someone else? Patient reports no desire to harm self or others. Initial Sepsis Screen: Does the patient meet any 2 criteria? No. Patient's initial sepsis screen is negative. Does the patient have a suspected source of infection? No. Patient's initial sepsis screen is negative. Care prior to arrival: None. 08:35 Method Of Arrival: Ambulatory ss 08:35 Acuity: MARY 3 ss Historical: - Allergies: 08:34 No Known Allergies; tw2 - Home Meds: 08:34 losartan oral oral [Active]; ergocalciferol (vitamin D2) miscellaneous [Active]; tw2 - PMHx: 08:34 Hypertension; tw2 - Immunization history:: Adult Immunizations up to date. - Social history:: Smoking status: Patient/guardian denies using tobacco. - Ebola Screening: : Patient denies travel to an Ebola-affected area in the 21 days before illness onset. - Family history:: not pertinent. - Hospitalizations: : The patient was recently seen at [facility]. Screenin:33 Abuse screen: Denies threats or abuse. Nutritional screening: No deficits noted. tw2 Tuberculosis screening: No symptoms or risk factors identified. Fall Risk None identified. Assessment: 08:58 Reassessment: Dr. Yen at bedside at this time. tw2 09:00 General: Appears in no apparent distress. obese, Behavior is calm, cooperative, tw2 appropriate for age. Pain: Complains of pain in "burning with urination". Neuro: Level of Consciousness is awake, alert, obeys commands, Oriented to person, place, time, situation. Cardiovascular: Denies chest pain, shortness of breath, Patient's skin is warm and dry. Respiratory: Airway is patent Respiratory effort is even, unlabored, Respiratory pattern is regular, symmetrical. GI: No signs and/or symptoms were reported involving the gastrointestinal system. : Urine is clear. EENT: No signs and/or symptoms were reported regarding the EENT system. Derm: No signs and/or symptoms reported regarding the dermatologic system. Skin is dry, Skin temperature is warm. Musculoskeletal: Range of motion: intact in all extremities. 09:00 Reassessment: Dr. Yen notified myself and Dr. Sanchez that he had removed the renal ss stent and the patient may now be discharged home. 09:29 Reassessment: Patient appears in no apparent distress at this time. No changes from tw2 previously documented assessment. Patient and/or family updated on plan of care and expected duration. Pain level reassessed. Patient is alert, oriented x 3, equal unlabored respirations, skin warm/dry/pink. Vital Signs: 08:35 BP 154 / 78; Pulse 83; Resp 16; Pulse Ox 98% on R/A; Pain 0/10; ss 09:29 BP 153 / 81; Pulse 77; Resp 17; Pulse Ox 100% on R/A; tw2 ED Course: 08:21 Patient arrived in ED. sb2 08:22 Dieudonne Sandhu MD is Private Physician. sb2 08:33 Maricruz Aiken RN is Primary Nurse. tw2 08:35 Arm band placed on. tw2 08:43 John Sanchez MD is Attending Physician. rn 08:45 Bed in low position. Call light in reach. Pulse ox on. NIBP on. tw2 08:49 Triage completed. ss 09:34 Watson Yen MD is Referral Physician. rn 09:47 No provider procedures requiring assistance completed. Patient did not have IV access tw2 during this emergency room visit. Administered Medications: No medications were administered Outcome: 09:35 Discharge ordered by . rn 09:47 Discharged to home via wheelchair. tw2 09:47 Condition: stable 09:47 Discharge instructions given to patient, Instructed on the need for admit. 09:48 Patient left the ED. tw2 Signatures: John Sanchez MD MD rn Jinny Bower, RN RN ss Maricruz Aiken RN RN tw2 Arlyn Loya sb2
[2018-03-14 09:53] VITALS: BP 153/81; O2SAT 100
--- NOTE | 2018-03-14 12:39 | PN ---
This is a lady, who is 67-year-old, had a stent placed for infection, possible obstruction, possible stone in the mid ureter, came in this morning because she is constantly leaking and may have possible pulled the stent down into urethra. I went ahead and just removed the stent entirely in the emergency room. On removing, I could feel some grit at the like the stent in the distal ureter like the stent was grabbing some type of stones, so she may possibly need some type for ureteroscopy in the future. Her insurance has gone ahead and approved out of network visits for 4 visits until May 2018. She will need a permit to do ureteroscopy and possible stone extraction, possible stent placement, possible basket, possible lithotripsy at that time. I have told her to come to the office tomorrow. If she is in the pain or fevers, to come right back to the emergency room and we will do the procedure as emergency. ALICIA/GI Voice ID: [id number] Report ID: [id number] VALE
== END 2018-03-14 09:48 | disposition home or self-care (01) ==
LOC: ER 08:20
DX: T83.89XA Other specified complication of genitourinary prosthetic devices, implants and grafts, initial encounter (principal); R32 Unspecified urinary incontinence; I10 Essential (primary) hypertension; Y83.8 Other surgical procedures as the cause of abnormal reaction of the patient, or of later complication, without mention of misadventure at the time of the procedure; Y92.9 Unspecified place or not applicable
CPT/HCPCS: 81003; 81015; 87086; 87088; 99283

== ENCOUNTER 2018-03-15 11:00 | Day surgery (SDC) | payer MEDICARE ==
[2018-03-15 11:45] LABS: Absolute Lymphocytes (CBC) 1.7 K/uL (0.7-4.9); Absolute Monocytes 0.7 K/uL (0.1-1.3); Absolute Neutrophil 8.2 K/uL (1.8-8.0); Basophils % 1.1 % (0-1.3); Eosinophils % 1.5 % (0-4.4); Hematocrit 37.4 % (36.0-45.0); Lymphocytes % 15.4 % (15.3-44.8); MCH 26.7 pg (27.0-35.0); MCV 78.7 fL (80-100); MPV 8.1 fL (7.6-11.3); Monocytes % 6.5 % (3.3-12.3); RBC Red Blood Cell Count 4.75 M/uL (3.86-4.86)
[2018-03-15 11:48] LABS: Protime INR 1.13
[2018-03-15 11:57] LABS: Potassium 4.6 mmol/L (3.5-5.1)
[2018-03-15 11:57] LABS: Urine Appearance CLEAR; Urine Bilirubin NEGATIVE (NEG); Urine Blood TRACE (NEG); Urine Color YELLOW; Urine Glucose NEGATIVE (NEG); Urine Protein NEGATIVE (NEG); Urine Specific Gravity 1.015 (1.005-1.030); Urine Urobilinogen 0.2 mg/dL (0.2-1.0)
[2018-03-15 12:03] LABS: Urine Microscopic Reflex ORDER UMIC
[2018-03-15] MEDS ORDERED: Ringers Lactate 1,000 ML IV ONE ×2 (12:04→15:35)
[2018-03-15] MEDS ORDERED: GENTAMICIN 100 MG/100 ML BAG 100 MG/100 ML BAG IV ONE (12:04)
[2018-03-15 12:12] LABS: Urine Bacteria <20 /HPF (<20); Urine Culture Reflex Order NOT NEEDED; Urine RBC <5 /HPF (NONE SEEN)
--- NOTE | 2018-03-15 12:32 | RAD REPORT ---
EXAM DESCRIPTION: RAD - Chest Pa And Lat (2 Views) - 03/15/2018 12:02 pm CLINICAL HISTORY: Flank pain Chest pain. COMPARISON: Chest Pa And Lat (2 Views) dated 02/27/2018; CHEST PA AND LAT 2 VIEW dated 01/25/2014; CHEST PA AND LAT 2 VIEW dated 03/06/2012 FINDINGS: The lungs are clear. The heart is mildly prominent size. No displaced fractures. Lower lum bar degenerative changes. IMPRESSION: Mild cardiomegaly.
[2018-03-15] MEDS ORDERED: PROPOFOL 200 MG/20 ML VIAL IV ONE (13:36)
[2018-03-15] MEDS ORDERED: MIDAZOLAM HCL 2 MG/2 ML INJ ONE (13:37)
[2018-03-15] MEDS ORDERED: LIDOCAINE 2% MPF 5 ML VIAL ONE (13:37)
[2018-03-15] MEDS ORDERED: FENTANYL CITR 100 MCG/2 ML ONE ×2 (13:37→15:09)
--- NOTE | 2018-03-15 14:17 | EKG ---
Test Date: 2018-03-15 Test Time: 11:23:24 Automatic Packer Operator: KIARA MEASUREMENT RESULTS: Intervals: Rate: 76 CA: 138 QRSD: 82 QT: 394 QTc: 443 [place]: P: 23 CA: 138 QRS: 4 T: 18 INTERPRETIVE STATEMENTS: Normal sinus rhythm Normal ECG Compared to ECG 11/23/2017 08:44:15 No significant changes Electronically Signed On 03-15-18 14:16:13 CDT by Alexander Fraser
[2018-03-15] MEDS ORDERED: EPHEDRINE SULF 50 MG/10 ML SYR ONE (14:44)
[2018-03-15] MEDS ORDERED: CODEINE 30MG/APAP 300MG TAB PO PRN (15:59)
[2018-03-15] MEDS ORDERED: SODIUM CHL 0.9% IRR SOLN 2000 ML IRR SCH (16:00)
--- NOTE | 2018-03-15 16:01 | RAD REPORT ---
EXAM DESCRIPTION: RAD - Urethrocystogrphy Retrograde - 03/15/2018 3:51 pm CLINICAL HISTORY: STENT REMOVAL COMPARISON: Hip Bilateral With Pelvis dated 03/01/2018 FINDINGS: Fluoroscopic imaging of the abdomen was performed as part of a stent removal procedure. De tails of the procedure not available. Total fluoro time: 0.2 minutes
[2018-03-15] MEDS: MEPERIDINE HCL 50 MG/ML AMP ONE ×2 (16:20→16:25)
[2018-03-15 17:55] VITALS: BP 136/73; TEMP 97
[2018-03-15 18:40] VITALS: O2SAT 99
[2018-03-16] MEDS ORDERED: LOSARTAN POTASSIUM 50 MG TABLET PO SCH (06:00)
[2018-03-16] MEDS ORDERED: CEPHALEXIN 500 MG CAP PO SCH (09:00)
== END 2018-03-15 18:31 | disposition home or self-care (01) ==
LOC: OR 11:00 → 2ND 15:42 → OR 18:31
PROVIDERS: ATTEND Urology
PROC: 0T768DZ Dilation of Right Ureter with Intraluminal Device, Via Natural or Artificial Opening Endoscopic (ICD-10-PCS; 2018-03-15)
PROC: BT1DYZZ Fluoroscopy of Right Kidney, Ureter and Bladder using Other Contrast (ICD-10-PCS; 2018-03-15)
PROC: 0TC68ZZ Extirpation of Matter from Right Ureter, Via Natural or Artificial Opening Endoscopic (ICD-10-PCS; 2018-03-15)
PROC: 0TF68ZZ Fragmentation in Right Ureter, Via Natural or Artificial Opening Endoscopic (ICD-10-PCS; principal; 2018-03-15 14:30)
DX: Q62.39 Other obstructive defects of renal pelvis and ureter (principal); N13.30 Unspecified hydronephrosis; N13.4 Hydroureter
CPT/HCPCS: 36415; 51610; 52356; 71046; 74450; 80048; 82360; 85025; 85610; 85730; 87086; 87088; 88300; 93005; J1580; J2175; J2250; J3010 ×2; Q9967; 81003; 81015

== ENCOUNTER 2018-10-30 15:48 | Emergency (ER) | payer MEDICARE ==
--- NOTE | 2018-10-30 18:07 | RAD REPORT ---
EXAM DESCRIPTION: RAD - Sacrum And Coccyx - 10/30/2018 6:01 pm CLINICAL HISTORY: Tail bone pain following fall COMPARISON: Lumbar spine February 2018 FINDINGS: Patient has prominent lower lumbar facet joint degenerative change similar to comparison. There is slight anterior subluxation of L4 that matches comparison. No sacrum or coccyx fracture iden tifiable. Patient does have acute anterior angulation of the lower 2 coccygeal segments. This is an o rientation that matches the comparison. No pathologic bone process. No presacral soft tissue thickeni ng seen. IMPRESSION: No sacrum or coccyx fracture identifiable. Prominent lower lumbar facet degenerative change.
[2018-10-30] MEDS ORDERED: HYDROCODONE/APAP 10/325 TAB ONE (21:09)
[2018-10-30] MEDS ORDERED: KETOROLAC 30 MG/ML INJ ONE (21:10)
[2018-10-30] MEDS ORDERED: DIAZEPAM 5 MG TABLET ONE (21:10)
--- NOTE | 2018-10-30 21:12 | RAD REPORT ---
EXAM DESCRIPTION: CT - Spine Lumbar Wo Con - 10/30/2018 8:47 pm CLINICAL HISTORY: Lumbar pain, radiculopathy COMPARISON: None. TECHNIQUE: Thin section axial imaging of the lumbar spine was performed. Sagittal and coronal recon struction images were generated and reviewed. All CT scans are performed using dose optimization technique as appropriate and may include automated exposure control or mA/KV adjustment according to patient size. FINDINGS: No compression fracture identified. No lytic, sclerotic or expansile destructive change. T here is slight anterior subluxation of L4 on L5 secondary to prominent facet joint degenerative daily e. No paraspinal mass identified. T12-L1: Posterior ligament calcification disc bulge are present. Canal is 11 mm. No foraminal encroac hment. Prominent endplate spurs are present. Moderate facet degenerative changes are present. L1-L2: Calcification of the posterior ligaments noted on the right. Moderately prominent facet degene rative change seen. No herniation suspected. Foraminal disc bulge changes are present worse on the le ft. Left foraminal stenosis is suspected. L2-L3: Disc bulge and posterior ligament calcifications are present. Prominent facet joint degenerati ve change present more so on the right. Central canal is 8 mm. Mild bilateral foraminal encroachment seen. L3-4: Advanced degenerative disc disease present. Large posterior endplate spurs are are present. Pat ient has severe facet joint hypertrophy along with ligamentous thickening. Central spinal stenosis is present down to 6 mm. There is significant bilateral foraminal stenosis from disc bulge and uncovert ebral joint hypertrophy. L4- L5: Severe facet hypertrophy is present. Disc bulge and endplate spurring changes are present. Si gnificant bilateral foraminal stenosis. Central canal is 10 mm at the disc but only approximately 5 m m at the L5 lateral recess. L5-S1 level: Prominent disc bulge and endplate spurring changes are present. Bilateral foraminal encr oachment without significant central spinal stenosis. IMPRESSION: No compression fracture or acute lumbar spine finding. Advanced degenerative changes are present resulting in very significant spinal stenosis at L3-4 and L 4-5. Significant multilevel foraminal stenosis from disc bulge, facet hypertrophy and uncovertebral joint hypertrophy.
--- NOTE | 2018-10-30 21:18 | RAD REPORT ---
EXAM DESCRIPTION: RAD - Pelvis - 10/30/2018 8:59 pm CLINICAL HISTORY: Fall, pelvic pain COMPARISON: None. TECHNIQUE: AP imaging of the pelvis was obtained. FINDINGS: Advanced lumbar spine degenerative changes are present separately detailed. No fracture of the bony pelvis. No fracture or dislocation of either proximal femur. No pathologic bone process. SI joint degenerative changes are present. Numerous pelvic floor phleboliths are present. IMPRESSION: No fracture or acute pelvis or hip joint finding.
--- NOTE | 2018-10-30 22:30 | ER ---
Nurse's Notes [facility] Name: Naeem Gonzales Age: 68 yrs Sex: Female : 1950 Arrival Date: 10/30/2018 Time: 15:51 Bed 12 Private MD: Dieudonne Sandhu Diagnosis: Low back pain;Fall due to bumping against object;Spinal stenosis, lumbar region Presentation: 10/30 16:12 Presenting complaint: Patient states: "My tailbone hurts after I fell 1.5 weeks ago. It ss got real bad Tuesday.". Transition of care: patient was not received from another setting of care. Onset of symptoms was October 20, 2018. Risk Assessment: Do you want to hurt yourself or someone else? Patient reports no desire to harm self or others. Initial Sepsis Screen: Does the patient meet any 2 criteria? No. Patient's initial sepsis screen is negative. Does the patient have a suspected source of infection? No. Patient's initial sepsis screen is negative. Care prior to arrival: None. 16:12 Method Of Arrival: Ambulatory ss 16:12 Acuity: MARY 4 ss Historical: - Allergies: 16:13 No Known Allergies; ss - PMHx: 16:13 Hypertension; ss - Immunization history:: Adult Immunizations unknown. - Social history:: Smoking status: Patient/guardian denies using tobacco. - Ebola Screening: : Patient denies exposure to infectious person Patient denies travel to an Ebola-affected area in the 21 days before illness onset. - Family history:: not pertinent. Screenin:13 Abuse screen: Denies threats or abuse. Denies injuries from another. Nutritional lp1 screening: No deficits noted. Tuberculosis screening: No symptoms or risk factors identified. Fall Risk None identified. Assessment: 20:12 General: Appears in no apparent distress. Behavior is appropriate for age. Pain: lp1 Complains of pain in buttocks Pain currently is 7 out of 10 on a pain scale. Neuro: No deficits noted. Cardiovascular: Patient's skin is warm and dry. Respiratory: No deficits noted. GI: No deficits noted. : No deficits noted. EENT: No deficits noted. Derm: Skin is pink, warm \\T\\ dry. Musculoskeletal: Circulation, motion, and sensation intact. 22:30 Reassessment: Patient and/or family updated on plan of care and expected duration. Pain lp1 level reassessed. Patient states some pain relief to tailbone from medication administered Patient states feeling better. Vital Signs: 16:13 BP 150 / 77; Pulse 86; Resp 18; Temp 97.8(TE); Pulse Ox 98% on R/A; Weight 99.79 kg; ss Height 5 ft. 2 in. (157.48 cm); Pain 10/10; 19:57 BP 159 / 83; Pulse 84; Resp 16; Pulse Ox 99% on R/A; mt 22:57 BP 137 / 76; Pulse 82; Resp 18; Pulse Ox 99% on R/A; Pain 4/10; lp1 16:13 Body Mass Index 40.24 (99.79 kg, 157.48 cm) ED Course: 15:51 Patient arrived in ED. mr 15:52 Dieudonne Sandhu MD is Private Physician. mr 16:13 Triage completed. ss 16:13 Arm band placed on right wrist. ss 18:01 Sacrum And Coccyx XRAY In Process Unspecified. EDMS 19:53 Bhavin Rucker MD is Attending Physician. colleen 19:53 Hollie Desir, SUSY is Primary Nurse. lp1 20:13 Patient has correct armband on for positive identification. lp1 20:[address] vm2 20:47 CT Lumbar Spine Wo Con In Process Unspecified. EDMS 21:00 Pelvis XRAY In Process Unspecified. EDMS 22:29 Dieudonne Sandhu MD is Referral Physician. colleen 22:30 Shawn Roblero MD is Referral Physician. colleen 22:57 No provider procedures requiring assistance completed. Patient did not have IV access lp1 during this emergency room visit. Administered Medications: 21:17 Not Given (Change in route): TORadol 30 mg IVP once lp1 21:17 Drug: [place] 10 mg-325 mg 1 tabs Route: PO; lp1 22:35 Follow up: Response: Pain is decreased lp1 21:17 Drug: Valium 5 mg Route: PO; lp1 22:35 Follow up: Response: Marked relief of symptoms lp1 21:18 Drug: TORadol 30 mg Route: IM; Site: right deltoid; lp1 22:36 Follow up: Response: No adverse reaction lp1 Outcome: 22:29 Discharge ordered by . colleen 22:58 Discharged to home via wheelchair, with family. lp1 22:58 Condition: good 22:58 Discharge instructions given to patient, Instructed on discharge instructions, follow up and referral plans. medication usage, Demonstrated understanding of instructions, follow-up care, medications, Prescriptions given X 4. 22:58 Patient left the ED. lp1 Signatures: Dispatcher [employer] EDMS Bhavin Rucker MD MD cha Rivera, Therese mr Jinny Bower RN RN ss Pena, Laura, RN RN lp1 Mimi Ramachandran [facility] Kala Fitzgerald mt Corrections: (The following items were deleted from the chart) 22:58 22:57 BP 137 / 76; Pulse 82bpm; Resp 18bpm; Pulse Ox 99% RA; lp1 lp1 0312 02:45 03/11 22:00 Reassessment: Patient and/or family updated on plan of care and expected lp1 duration. Pain level reassessed. Patient states some pain relief to tailbone from medication administered Patient states feeling better. lp1
--- NOTE | 2018-10-30 22:30 | EDPHYS ---
Physician Documentation [facility] Name: Naeem Gonzales Age: 68 yrs Sex: Female : 1950 Arrival Date: 10/30/2018 Time: 15:51 Bed 12 Private MD: Dieudonne Sandhu ED Physician Bhavin Rucker HPI: 10/30 20:15 This 68 yrs old Black Female presents to ER via Ambulatory with complaints of Low Back colleen Pain. 20:15 The patient presents with pain that is acute. The symptoms are located in the low back, colleen coccyx area. The pain does not radiate. The problem was sustained during a fall, while walking. Onset: The symptoms/episode began/occurred 5 day(s) ago. Modifying factors: The patient symptoms are alleviated by remaining still, the patient symptoms are aggravated by movement. Associated signs and symptoms: The patient has no apparent associated signs or symptoms. Severity of symptoms: At their worst the symptoms were moderate, in the emergency department the symptoms are unchanged. The patient has not experienced similar symptoms in the past. Historical: - Allergies: 16:13 No Known Allergies; ss - PMHx: 16:13 Hypertension; ss - Immunization history:: Adult Immunizations unknown. - Social history:: Smoking status: Patient/guardian denies using tobacco. - Ebola Screening: : Patient denies exposure to infectious person Patient denies travel to an Ebola-affected area in the 21 days before illness onset. - Family history:: not pertinent. ROS: 20:15 Constitutional: Negative for fever, chills, and weight loss, Eyes: Negative for injury, colleen pain, redness, and discharge, ENT: Negative for injury, pain, and discharge, Neck: Negative for injury, pain, and swelling, Cardiovascular: Negative for chest pain, palpitations, and edema, Respiratory: Negative for shortness of breath, cough, wheezing, and pleuritic chest pain, Abdomen/GI: Negative for abdominal pain, nausea, vomiting, diarrhea, and constipation, : Negative for injury, bleeding, discharge, and swelling, MS/Extremity: Negative for injury and deformity, Skin: Negative for injury, rash, and discoloration, Neuro: Negative for headache, weakness, numbness, tingling, and seizure, Psych: Negative for depression, anxiety, suicide ideation, homicidal ideation, and hallucinations, Allergy/Immunology: Negative for hives, rash, and allergies, Endocrine: Negative for neck swelling, polydipsia, polyuria, polyphagia, and marked weight changes, Hematologic/Lymphatic: Negative for swollen nodes, abnormal bleeding, and unusual bruising. 20:15 Abdomen/GI: Positive for 20:15 Back: Positive for injury or acute deformity, decreased range of motion, pain at rest. Exam: 20:15 Constitutional: This is a well developed, well nourished patient who is awake, alert, colleen and in no acute distress. Head/Face: Normocephalic, atraumatic. Eyes: Pupils equal round and reactive to light, extra-ocular motions intact. Lids and lashes normal. Conjunctiva and sclera are non-icteric and not injected. Cornea within normal limits. Periorbital areas with no swelling, redness, or edema. ENT: Nares patent. No nasal discharge, no septal abnormalities noted. Tympanic membranes are normal and external auditory canals are clear. Oropharynx with no redness, swelling, or masses, exudates, or evidence of obstruction, uvula midline. Mucous membranes moist. Neck: Trachea midline, no thyromegaly or masses palpated, and no cervical lymphadenopathy. Supple, full range of motion without nuchal rigidity, or vertebral point tenderness. No Meningismus. Chest/axilla: Normal chest wall appearance and motion. Nontender with no deformity. No lesions are appreciated. Cardiovascular: Regular rate and rhythm with a normal S1 and S2. No gallops, murmurs, or rubs. Normal PMI, no JVD. No pulse deficits. Respiratory: Lungs have equal breath sounds bilaterally, clear to auscultation and percussion. No rales, rhonchi or wheezes noted. No increased work of breathing, no retractions or nasal flaring. Abdomen/GI: Soft, non-tender, with normal bowel sounds. No distension or tympany. No guarding or rebound. No evidence of tenderness throughout. Female : Normal external genitalia. Skin: Warm, dry with normal turgor. Normal color with no rashes, no lesions, and no evidence of cellulitis. MS/ Extremity: Pulses equal, no cyanosis. Neurovascular intact. Full, normal range of motion. Neuro: Awake and alert, GCS 15, oriented to person, place, time, and situation. Cranial nerves II-XII grossly intact. Motor strength 5/5 in all extremities. Sensory grossly intact. Cerebellar exam normal. Normal gait. Psych: Awake, alert, with orientation to person, place and time. Behavior, mood, and affect are within normal limits. 20:15 Back: ROM is painful, kyphosis, CVA tenderness, is absent, vertebral tenderness, is not appreciated, muscle spasm, is appreciated in the left low back, left mid back, right mid back and right low back. Vital Signs: 16:13 BP 150 / 77; Pulse 86; Resp 18; Temp 97.8(TE); Pulse Ox 98% on R/A; Weight 99.79 kg; ss Height 5 ft. 2 in. (157.48 cm); Pain 10/10; 19:57 BP 159 / 83; Pulse 84; Resp 16; Pulse Ox 99% on R/A; mt 22:57 BP 137 / 76; Pulse 82; Resp 18; Pulse Ox 99% on R/A; Pain 4/10; lp1 16:13 Body Mass Index 40.24 (99.79 kg, 157.48 cm) MDM: 19:53 Patient medically screened. [facility] 20:17 Data reviewed: vital signs, nurses notes, lab test result(s), radiologic studies, CT colleen scan, plain films. 10/30 17:20 Order name: Sacrum And Coccyx XRAY; Complete Time: 20:12 ss 10/30 20:14 Order name: CT Lumbar Spine Wo Con; Complete Time: 21:19 [facility] 10/30 20:18 Order name: Pelvis XRAY; Complete Time: 22:28 [facility] Administered Medications: 21:17 Not Given (Change in route): TORadol 30 mg IVP once lp1 21:17 Drug: [place] 10 mg-325 mg 1 tabs Route: PO; lp1 22:35 Follow up: Response: Pain is decreased lp1 21:17 Drug: Valium 5 mg Route: PO; lp1 22:35 Follow up: Response: Marked relief of symptoms lp1 21:18 Drug: TORadol 30 mg Route: IM; Site: right deltoid; lp1 22:36 Follow up: Response: No adverse reaction lp1 Disposition: 10/30/18 22:29 Discharged to Home. Impression: Low back pain, Fall due to bumping against object, Spinal stenosis, lumbar region. - Condition is Stable. - Discharge Instructions: Back Pain, Adult, Musculoskeletal Pain, Back Injury Prevention, [id number], Back Pain, Adult, [id number]. - Prescriptions for Tylenol- Codeine #3 300-30 mg Oral Tablet - take 2 tablet by ORAL route every 6 hours As needed; 30 tablet. Valium 5 mg Oral Tablet - take 1 tablet by ORAL route every 8 hours As needed; 20 tablet. Motrin IB 200 mg Oral Tablet - take 2 tablet by ORAL route every 8 hours As needed as needed with food; 24 tablet. Dexamethasone 0.5 mg Oral Tablet - take 1 tablet by ORAL route 3 times per day; 15 tablet. - Medication Reconciliation Form, Thank You Letter, Antibiotic Education, Prescription Opioid Use form. - Follow up: Dieudonne Sandhu; When: 2 - 3 days; Reason: Recheck today's complaints, Continuance of care, Re-evaluation by your physician. Follow up: Shawn Roblero MD; When: 2 - 3 days; Reason: Recheck today's complaints, Continuance of care, Re-evaluation by your physician. - Problem is new. - Symptoms have improved. Signatures: Dispatcher [employer] EDMS Bhavin Rucker MD MD cha Smirch, Shelby, RN RN ss Hollie Desir RN RN lp1 Corrections: (The following items were deleted from the chart) 22:31 22:29 10/30/2018 22:29 Discharged to Home. Impression: Low back pain; Fall due to colleen bumping against object; Spinal stenosis, lumbar region. Condition is Stable. Discharge Instructions: Back Pain, Adult, Musculoskeletal Pain, Back Injury Prevention, Pmox-ap-[id number], Back Pain, Adult, Uhnz-sg-Kllz. Prescriptions for Tylenol-Codeine #3 300-30 mg Oral Tablet - take 2 tablet by ORAL route every 6 hours As needed; 30 tablet, Valium 5 mg Oral Tablet - take 1 tablet by ORAL route every 8 hours As needed; 20 tablet, Motrin IB 200 mg Oral Tablet - take 2 tablet by ORAL route every 8 hours As needed as needed with food; 24 tablet. and Forms are Medication Reconciliation Form, Thank You Letter, Antibiotic Education, Prescription Opioid Use. Follow up: Dieudonne Sandhu; When: 2 - 3 days; Reason: Recheck today's complaints, Continuance of care, Re-evaluation by your physician. Problem is new. Symptoms have improved. [facility] 22:58 22:31 10/30/2018 22:29 Discharged to Home. Impression: Low back pain; Fall due to lp1 bumping against object; Spinal stenosis, lumbar region. Condition is Stable. Discharge Instructions: Back Pain, Adult, Musculoskeletal Pain, Back Injury Prevention, Dbsc-ef-[id number], Back Pain, Adult, Hduv-[id number]-Jdbb. Prescriptions for Tylenol-Codeine #3 300-30 mg Oral Tablet - take 2 tablet by ORAL route every 6 hours As needed; 30 tablet, Valium 5 mg Oral Tablet - take 1 tablet by ORAL route every 8 hours As needed; 20 tablet, Motrin IB 200 mg Oral Tablet - take 2 tablet by ORAL route every 8 hours As needed as needed with food; 24 tablet, Dexamethasone 0.5 mg Oral Tablet - take 1 tablet by ORAL route 3 times per day; 15 tablet. and Forms are Medication Reconciliation Form, Thank You Letter, Antibiotic Education, Prescription Opioid Use. Follow up: Dieudonne Sandhu; When: 2 - 3 days; Reason: Recheck today's complaints, Continuance of care, Re-evaluation by your physician. Follow up: Shawn Roblero; When: 2 - 3 days; Reason: Recheck today's complaints, Continuance of care, Re-evaluation by your physician. Problem is new. Symptoms have improved. [facility]
[2018-10-30] MEDS ORDERED: DEXAMETHASONE 4 MG TAB ONE (22:51)
[2018-10-30 23:30] VITALS: TEMP 97.8
[2018-10-30 23:31] VITALS: O2SAT 99
[2018-10-30 23:32] VITALS: BP 137/76
== END 2018-10-30 22:58 | disposition home or self-care (01) ==
LOC: ER 15:48
DX: M54.5 Low back pain (principal); M48.061 Spinal stenosis, lumbar region without neurogenic claudication; W18.00XA Striking against unspecified object with subsequent fall, initial encounter; I10 Essential (primary) hypertension
CPT/HCPCS: 72131; 72170; 72220; 96372; 99284

== ENCOUNTER 2021-01-04 01:50 | Inpatient (IN) | payer MEDICARE, OTHER ==
--- OUTSIDE RECORDS SUMMARY | 2021-01-04 01:54 | XMS REPORT | Continuity of Care Document ---
:[address] [facility] t Address [address] [place] [place] [address] Care Team Providers Name Role Phone Erma Maravilla MD Attending Clinician Problems This patient has no known problems. Allergies, Adverse Reactions, Alerts This patient has no known allergies or adverse reactions. Medications This patient has no known medications. Procedures This patient has no known procedures. Encounters Start End Encounter Admission Attending Care Care Encounter Source Date/Time Date/Time Type Type Clinicians Facility Department ID 2020-06-26 2020-06-26 [facility] [id number] 14:00:17 23:59:00 Encounter [facility] [id number] Surgical [id number] Specialti [id number] [address] 2020-06-26 2020-06-26 Office [facility] [id number] 13:55:42 14:10:42 Visit [facility] [id number] Surgical [id number] Specialti [id number] [address] [place] Results This patient has no known results.
[2021-01-04] MEDS ORDERED: ONDANSETRON 4 MG/2 ML VIAL ONE (03:02)
[2021-01-04] MEDS ORDERED: MORPHINE 4 MG/ML SYR ONE (03:02)
[2021-01-04] MEDS ORDERED: NA CHLORIDE 0.9% 1,000 ML ONE (03:02)
[2021-01-04 03:06] LABS: Absolute Lymphocytes (CBC) 0.7 K/uL (0.7-4.9); Basophils % 0.2 % (0-1.3); Lymphocytes % 4.2 % (15.3-44.8); MPV 8.1 fL (7.6-11.3); RBC Red Blood Cell Count 4.84 M/uL (3.86-4.86)
[2021-01-04 03:14] LABS: Protime INR 1.12
[2021-01-04 03:26] LABS: ALT/SGPT 24 U/L (12-78); AST/SGOT 13 U/L (15-37); Albumin 3.6 g/dL (3.4-5.0); Alkaline Phosphatase 104 U/L (45-117); BUN Blood Urea Nitrogen 11 mg/dL (7-18); Bicarbonate 27 mmol/L (21-32); Bilirubin Direct 0.1 mg/dL (0-0.2); Bilirubin Total 0.4 mg/dL (0.2-1.0); Glucose Level 122 mg/dL (74-106); Magnesium 1.9 mg/dL (1.8-2.4); NT PRO-BNP 59 pg/mL (<125); Protein, Total 7.2 g/dL (6.4-8.2); Sodium Level 139 mmol/L (136-145); Troponin (Emerg Dept Use Only) < 0.02 ng/mL (0.0-0.045)
[2021-01-04] MEDS ORDERED: ACETAMINOPHEN 500 MG TAB ONE (03:33)
[2021-01-04 04:39] LABS: Urine Blood Trace-intact (Negative); Urine Glucose Negative (Negative); Urine Protein Negative (Negative); Urine Specific Gravity 1.025 (1.005-1.030)
[2021-01-04 05:04] LABS: Urine Bacteria LOADED /HPF (<20); Urine Mucus 1+ /HPF (NONE SEEN); Urine RBC <5 /HPF (NONE SEEN)
--- NOTE | 2021-01-04 05:15 | ER ---
Nurse's Notes [facility] Name: Naeem Gonzales Age: 70 yrs Sex: Female : 1950 Arrival Date: 01/04/2021 Time: 01:54 Bed 6 Private MD: Dieudonne Sandhu Diagnosis: Pneumonia, Hypoxia;Urinary Tract Infection;Dehydration Presentation: 01/04 02:09 Chief complaint: Patient states: mid back pain, fever, chills, cough, has asthmatic iw bronchitis, went to Dr. Sandhu three weeks ago and was prescribed some breathing treatments , also has HX of kidney stones, cough is nonproductive. Coronavirus screen: Client presents with at least one sign or symptom that may indicate coronavirus-19. Ebola Screen: Patient negative for fever greater than or equal to 101.5 degrees Fahrenheit, and additional compatible Ebola Virus Disease symptoms Patient denies exposure to infectious person. Patient denies travel to an Ebola-affected area in the 21 days before illness onset. No symptoms or risks identified at this time. Initial Sepsis Screen: Does the patient meet any 2 criteria? HR > 90 bpm. No. Patient's initial sepsis screen is negative. Does the patient have a suspected source of infection?. Risk Assessment: Do you want to hurt yourself or someone else? Patient reports no desire to harm self or others. Onset of symptoms was December 17, 2020. 02:09 Method Of Arrival: Wheelchair iw 02:09 Acuity: MARY 3 iw Historical: - Allergies: 02:13 No Known Allergies; iw - Home Meds: 02:13 losartan-hydrochlorothiazide oral oral once daily [Active]; gabapentin oral oral iw [Active]; Celebrex Oral [Active]; - PMHx: 02:13 Hypertension; Back pain; iw - PSHx: 02:13 Lithotripsy; iw - Immunization history:: Adult Immunizations up to date, Client reports receiving the 2nd dose of the Covid vaccine, . - Social history:: Smoking status: Patient denies any tobacco usage or history of. Screenin:33 Abuse screen: Denies threats or abuse. Nutritional screening: No deficits noted. ea Tuberculosis screening: No symptoms or risk factors identified. Fall Risk None identified. Assessment: 02:59 General: Appears uncomfortable, Behavior is calm, cooperative, appropriate for age. ea Pain: Complains of pain in abdomen. Neuro: Level of Consciousness is awake, alert, obeys commands, Oriented to person, place, time. Cardiovascular: Patient's skin is warm and dry. Respiratory: Airway is patent Respiratory effort is even, unlabored, Respiratory pattern is regular, symmetrical. Derm: Skin is pink, warm \T\ dry. 03:49 Reassessment: Patient and/or family updated on plan of care and expected duration. Pain ea level reassessed. Patient is alert, oriented x 3, equal unlabored respirations, skin warm/dry/pink. 04:50 Reassessment: Patient and/or family updated on plan of care and expected duration. Pain ea level reassessed. Patient is alert, oriented x 3, equal unlabored respirations, skin warm/dry/pink. Provider at bedside updating pt on plan of care. 05:21 Reassessment: Patient and/or family updated on plan of care and expected duration. Pain ea level reassessed. Patient is alert, oriented x 3, equal unlabored respirations, skin warm/dry/pink. 07:38 Reassessment: Patient appears in no apparent distress at this time. Patient and/or jd3 family updated on plan of care and expected duration. Pain level reassessed. Patient is alert, oriented x 3, equal unlabored respirations, skin warm/dry/pink. Vital Signs: 02:09 BP 159 / 79; Pulse 124; Resp 18 S; Temp 100.1(TE); Pulse Ox 97% on R/A; Weight 104.33 iw kg; Height 5 ft. 2 in. (157.48 cm); 03:20 BP 151 / 74; Pulse 117; Resp 19; Pulse Ox 91% ; ea 03:25 Pulse 108; Resp 19; Pulse Ox 87% on R/A; ea 05:18 BP 120 / 73; Pulse 103; Resp 19; Temp 99.8; Pulse Ox 97% on 2 lpm NC; ea 07:38 BP 114 / 62; Pulse 92; Resp 17 S; Pulse Ox 97% on 2 lpm NC; jd3 02:09 Body Mass Index 42.07 (104.33 kg, 157.48 cm) iw 03:25 pt placed on O2 at 2L per nasal cannula ea ED Course: 01:54 Patient arrived in ED. es 01:55 Dieudonne Sandhu MD is Private Physician. es 02:12 Triage completed. iw 02:13 Arm band placed on. iw 02:19 Seth Dang MD is Attending Physician. 7 02:32 Ambar Acuna RN is Primary Nurse. ea 02:33 Patient has correct armband on for positive identification. Bed in low position. Call ea light in reach. Side rails up X2. 02:55 Inserted saline lock: 20 gauge in right antecubital area, using aseptic technique. ea Blood collected. 03:00 XRAY Chest (1 view) In Process Unspecified. EDMS 04:26 CT Chest For PE Angio In Process Unspecified. EDMS 04:26 CT Abd/Pelvis - IV Contrast Only In Process Unspecified. EDMS 05:13 Dieudonne Sandhu MD is Hospitalizing Provider. [facility] 05:16 No provider procedures requiring assistance completed. Patient admitted, IV remains in ea place. Administered Medications: 03:00 Drug: Zofran (Ondansetron) 4 mg Route: IVP; Site: right antecubital; ea 04:00 Follow up: Response: No adverse reaction ea 03:00 Drug: NS 0.9% 1000 ml Route: IV; Rate: 1000 ml; Site: right antecubital; ea 05:17 Follow up: Response: No adverse reaction; IV Intake: 1000ml ea 05:45 Follow up: Response: No adverse reaction; IV Status: Completed infusion; IV Intake: ea 1000ml 03:01 Drug: morphine 4 mg Route: IVP; Site: right antecubital; ea 04:00 Follow up: Response: No adverse reaction; RASS: Alert and Calm (0) ea 03:17 Drug: Tylenol 1000 mg Route: PO; ea 05:17 Follow up: Response: No adverse reaction ea 05:18 Follow up: Response: Temperature is decreased ea 04:50 Drug: Rocephin (cefTRIAXone) 1 grams Route: IV; Rate: per protocol; Site: right ea antecubital; 05:48 Follow up: IV Status: Completed infusion ea 05:48 Drug: AZITHromycin 500 mg Route: IVPB; Infused Over: 1 hrs; Site: right antecubital; ea Intake: 05:17 IV: 1000ml; Total: 1000ml. ea 05:45 IV: 1000ml; Total: 2000ml. ea Outcome: 05:14 Decision to Hospitalize by Provider. 7 07:37 Admitted to Med/surg accompanied by tech, via wheelchair, room 217, with oxygen, with martha chart, Report called to Chayito JAIN 07:37 Condition: stable 07:37 Instructed on the need for admit, Demonstrated understanding of instructions. 07:56 Patient left the ED. jd3 Signatures: Dispatcher [employer] Antonia Buckner Irene, RN RN iw Antunez, Elena, RN RN ea Davies, Jonathon, RN RN jd3 Holmes, Maurice, MD MD [facility] Corrections: (The following items were deleted from the chart) 03:40 03:15 Pulse 108bpm; Resp 19bpm; Pulse Ox 87% RA; pt placed on O2 at 2L per nasal ea cannula; ea 05:19 05:18 BP 120 / 73; Pulse 103bpm; Resp 19bpm; Pulse Ox 97% RA; Temp 99.8F; ea ea
--- NOTE | 2021-01-04 05:15 | EDPHYS ---
Physician Documentation [facility] Name: Naeem Gonzales Age: 70 yrs Sex: Female : 1950 Arrival Date: 01/04/2021 Time: 01:54 Bed 6 Private MD: Dieudonne Sandhu ED Physician Seth Dang HPI: 01/04 03:56 This 70 yrs old Black Female presents to ER via Wheelchair with complaints of Back mh7 Pain, Flank Pain, Fever, Cough, Breathing Difficulty. 03:57 The patient has shortness of breath at rest, with light activity. mh7 03:57 Onset: The symptoms/episode began/occurred 3 week(s) ago, and became worse yesterday. mh7 Duration: The symptoms are intermittent, with no pattern. The patient's shortness of breath is aggravated by coughing, light activity, is alleviated by nebulizer treatment, sitting up. Associated signs and symptoms: Pertinent positives: non-productive cough, fever, back pain, Pertinent negatives: chest pain, productive cough, diaphoresis, dizziness, hemoptysis, loss of consciousness, nausea, numbness in extremities, visual changes, vomiting. Severity of symptoms: At their worst the symptoms were moderate yesterday, in the emergency department the symptoms are unchanged. Historical: - Allergies: 02:13 No Known Allergies; iw - Home Meds: 02:13 losartan-hydrochlorothiazide oral oral once daily [Active]; gabapentin oral oral iw [Active]; Celebrex Oral [Active]; - PMHx: 02:13 Hypertension; Back pain; iw - PSHx: 02:13 Lithotripsy; iw - Immunization history:: Adult Immunizations up to date, Client reports receiving the 2nd dose of the Covid vaccine, . - Social history:: Smoking status: Patient denies any tobacco usage or history of. ROS: 03:57 Eyes: Negative for injury, pain, redness, and discharge, ENT: Negative for injury, mh7 pain, and discharge, Neck: Negative for injury, pain, and swelling, Cardiovascular: Negative for chest pain, palpitations, and edema, Abdomen/GI: Negative for abdominal pain, nausea, vomiting, diarrhea, and constipation, : Negative for injury, bleeding, discharge, and swelling, MS/Extremity: Negative for injury and deformity, Skin: Negative for injury, rash, and discoloration, Neuro: Negative for headache, weakness, numbness, tingling, and seizure, Psych: Negative for depression, anxiety, suicide ideation, homicidal ideation, and hallucinations, Allergy/Immunology: Negative for hives, rash, and allergies, Endocrine: Negative for neck swelling, polydipsia, polyuria, polyphagia, and marked weight changes, Hematologic/Lymphatic: Negative for swollen nodes, abnormal bleeding, and unusual bruising. Exam: 03:57 Head/Face: Normocephalic, atraumatic. Eyes: Pupils equal round and reactive to light, mh7 extra-ocular motions intact. Lids and lashes normal. Conjunctiva and sclera are non-icteric and not injected. Cornea within normal limits. Periorbital areas with no swelling, redness, or edema. Neck: Trachea midline, no thyromegaly or masses palpated, and no cervical lymphadenopathy. Supple, full range of motion without nuchal rigidity, or vertebral point tenderness. No Meningismus. Chest/axilla: Normal chest wall appearance and motion. Nontender with no deformity. No lesions are appreciated. 03:57 Abdomen/GI: Soft, non-tender, with normal bowel sounds. No distension or tympany. No guarding or rebound. No evidence of tenderness throughout. Back: No spinal tenderness. No costovertebral tenderness. Full range of motion. Skin: Warm, dry with normal turgor. Normal color with no rashes, no lesions, and no evidence of cellulitis. MS/ Extremity: Pulses equal, no cyanosis. Neurovascular intact. Full, normal range of motion. Neuro: Awake and alert, GCS 15, oriented to person, place, time, and situation. Cranial nerves II-XII grossly intact. Motor strength 5/5 in all extremities. Sensory grossly intact. Cerebellar exam normal. Normal gait. Psych: Awake, alert, with orientation to person, place and time. Behavior, mood, and affect are within normal limits. 03:57 Constitutional: The patient appears in no acute distress, alert, awake, uncomfortable. 03:57 Cardiovascular: Rate: tachycardic, Rhythm: regular, Pulses: no pulse deficits are appreciated, Heart sounds: normal, normal S1and S2, Edema: is not appreciated, JVD: is not appreciated. 03:57 Respiratory: the patient does not display signs of respiratory distress, Respirations: normal, Breath sounds: rhonchi, that are mild, are scattered, Respiratory rate: 18 Vital Signs: 02:09 BP 159 / 79; Pulse 124; Resp 18 S; Temp 100.1(TE); Pulse Ox 97% on R/A; Weight 104.33 iw kg; Height 5 ft. 2 in. (157.48 cm); 03:20 BP 151 / 74; Pulse 117; Resp 19; Pulse Ox 91% ; ea 03:25 Pulse 108; Resp 19; Pulse Ox 87% on R/A; ea 05:18 BP 120 / 73; Pulse 103; Resp 19; Temp 99.8; Pulse Ox 97% on 2 lpm NC; ea 07:38 BP 114 / 62; Pulse 92; Resp 17 S; Pulse Ox 97% on 2 lpm NC; jd3 02:09 Body Mass Index 42.07 (104.33 kg, 157.48 cm) iw 03:25 pt placed on O2 at 2L per nasal cannula ea MDM: 05:11 Differential diagnosis: Anemia Anxiety Reaction asthma, Bronchitis CHF exacerbation, [facility] Chronic Obstructive Pulmonary Disease Myocardial Infarction pneumonia, Pneumothorax Psychogenic pulmonary edema, Pulmonary Embolism reactive airway disease. Antibiotic administration: Rocephin and Zithromax given. Data reviewed: vital signs, nurses notes, old medical records, lab test result(s), cardiac enzymes, CBC, electrolytes, urinalysis, EKG, radiologic studies, CT scan, plain films. Data interpreted: Pulse oximetry: on 2L(s) per nasal canula, is 96 %. Interpretation: acceptable. Counseling: I had a detailed discussion with the patient and/or guardian regarding: the historical points, exam findings, and any diagnostic results supporting the discharge/admit diagnosis, the presence of at least one elevated blood pressure reading (>120/80) during this emergency department visit, lab results, radiology results, the need for further work-up and treatment in the hospital. Response to treatment: the patient's symptoms have markedly improved after treatment. 05:14 Patient medically screened. [facility] 01/04 02:32 Order name: Basic Metabolic Panel [facility] 01/04 02:32 Order name: CBC with Diff [facility] 01/04 02:32 Order name: LFT's; Complete Time: 03:34 [facility] 01/04 02:32 Order name: Magnesium; Complete Time: 03:34 [facility] 01/04 02:32 Order name: NT PRO-BNP; Complete Time: 03:34 [facility] 01/04 02:32 Order name: PT-INR; Complete Time: 03:34 [facility] 01/04 02:32 Order name: Troponin (emerg Dept Use Only); Complete Time: 03:34 [facility] 01/04 02:33 Order name: Blood Culture Adult (2) [facility] 01/04 02:33 Order name: Lactate; Complete Time: 03:34 [facility] 01/04 02:33 Order name: Basic Metabolic Panel; Complete Time: 03:34 [facility] 01/04 02:33 Order name: CBC with Automated Diff; Complete Time: 03:29 [facility] 01/04 02:37 Order name: COVID-19 : Document "Date of Symptom Onset" if Symptomatic. [facility] 01/04 02:32 Order name: XRAY Chest (1 view) [facility] 01/04 03:37 Order name: CT Chest For PE Angio [facility] 01/04 04:11 Order name: SARS-COV-2 RT PCR; Complete Time: 04:42 [facility] 01/04 04:39 Order name: Urine Dipstick-Ancillary; Complete Time: 04:42 [facility] 01/04 04:41 Order name: Urine Microscopic Only; Complete Time: 05:10 [facility] 01/04 04:41 Order name: Urine Culture [facility] 01/04 05:22 Order name: Basic Metabolic Panel [facility] 01/04 05:22 Order name: Basic Metabolic Panel [facility] 01/04 05:22 Order name: CBC with Automated Diff [facility] 01/04 05:22 Order name: CBC with Automated Diff [facility] 01/04 05:22 Order name: NT PRO-BNP [facility] 01/04 05:22 Order name: NT PRO-BNP [facility] 01/04 05:22 Order name: Troponin I [facility] 01/04 05:22 Order name: Troponin I [facility] 01/04 05:22 Order name: Troponin I [facility] 01/04 07:20 Order name: Lactate Sepsis 2 HR Follow-up [facility] 01/04 02:32 Order name: EKG; Complete Time: 02:33 [facility] 01/04 02:32 Order name: Cardiac monitoring; Complete Time: 03:40 [facility] 01/04 02:32 Order name: EKG - Nurse/Tech; Complete Time: 03:40 mh01/04 02:32 Order name: IV Saline Lock; Complete Time: 03:18 01/04 02:32 Order name: Labs collected and sent; Complete Time: 03:18 01/04 02:32 Order name: O2 Per Protocol; Complete Time: 03:18 01/04 02:32 Order name: O2 Sat Monitoring; Complete Time: 03:18 01/04 02:32 Order name: Urine Dipstick-Ancillary (obtain specimen); Complete Time: 04:43 01/04 03:37 Order name: CT Abd/Pelvis - IV Contrast Only 01/04 05:22 Order name: Consistent Carb (ADA) 1800 Kang EDMS Administered Medications: 03:00 Drug: Zofran (Ondansetron) 4 mg Route: IVP; Site: right antecubital; ea 04:00 Follow up: Response: No adverse reaction ea 03:00 Drug: NS 0.9% 1000 ml Route: IV; Rate: 1000 ml; Site: right antecubital; ea 05:17 Follow up: Response: No adverse reaction; IV Intake: 1000ml ea 05:45 Follow up: Response: No adverse reaction; IV Status: Completed infusion; IV Intake: ea 1000ml 03:01 Drug: morphine 4 mg Route: IVP; Site: right antecubital; ea 04:00 Follow up: Response: No adverse reaction; RASS: Alert and Calm (0) ea 03:17 Drug: Tylenol 1000 mg Route: PO; ea 05:17 Follow up: Response: No adverse reaction ea 05:18 Follow up: Response: Temperature is decreased ea 04:50 Drug: Rocephin (cefTRIAXone) 1 grams Route: IV; Rate: per protocol; Site: right ea antecubital; 05:48 Follow up: IV Status: Completed infusion ea 05:48 Drug: AZITHromycin 500 mg Route: IVPB; Infused Over: 1 hrs; Site: right antecubital; ea Disposition: 01/04/21 05:14 Hospitalization ordered by Dieudonne Sandhu for Inpatient Admission. Preliminary diagnosis are Pneumonia, Hypoxia, Urinary Tract Infection, Dehydration. - Bed requested for Telemetry/MedSurg (Inpatient). - Status is Inpatient Admission. jd3 - Condition is Stable. - Problem is new. - Symptoms have improved. Signatures: Dispatcher [employer] EDMS Almita Clemons RN RN iw Garett Vilchis, ROD WELDER-C ROD WELDER-Cla1 Marleny Boateng, RN RN cg Ambar Acuna, RN Rolando Diaz ea, RN RN jSeth Winter MD MD 7 Corrections: (The following items were deleted from the chart) 03:32 02:37 CORONAVIRUS ordered. EDNH EDNH 05:39 05:14 Hospitalization Ordered by Dieudonne Sandhu MD for Inpatient Admission. Preliminary cg diagnosis is Pneumonia, Hypoxia; Urinary Tract Infection; Dehydration. Bed requested for Telemetry/MedSurg (Inpatient). Status is Inpatient Admission. Condition is Stable. Problem is new. Symptoms have improved. [facility] 07:56 05:39 01/04/2021 05:14 Hospitalization Ordered by Dieudonne Sandhu MD for Inpatient jd3 Admission. Preliminary diagnosis is Pneumonia, Hypoxia; Urinary Tract Infection; Dehydration. Bed requested for Telemetry/MedSurg (Inpatient). Status is Inpatient Admission. Condition is Stable. Problem is new. Symptoms have improved.
[2021-01-04] MEDS ORDERED: ALBUTEROL 2.5 MG/3 ML NEB SOL NEB PRN (05:17)
[2021-01-04] MEDS ORDERED: IPRATROPIUM BROM 0.5MG/2.5ML NEB PRN (05:17)
[2021-01-04] MEDS ORDERED: ACETAMINOPHEN 500 MG TAB PO PRN (05:17)
[2021-01-04] MEDS ORDERED: ONDANSETRON 4 MG/2 ML VIAL IV PRN (05:17)
[2021-01-04] MEDS ORDERED: NA CHLORIDE 0.9% 500 ML ONE (05:22)
[2021-01-04] MEDS ORDERED: CEFTRIAXONE/SWI 1gm 1 GM/10 ML SYR ONE (05:22)
[2021-01-04] MEDS ORDERED: NA CHLORIDE 0.9% 250 ML ONE (05:47)
[2021-01-04] MEDS ORDERED: AZITHROMYCIN 500 MG INJ IVPB ONE (05:47)
[2021-01-04] MEDS ORDERED: AZITHROMYCIN IV 250 MG in NA CHLORIDE 0.9% 250 ML IVPB SCH (06:00)
[2021-01-04 08:14] VITALS: BMI 42.0
--- NOTE | 2021-01-04 08:19 | RAD REPORT ---
EXAM DESCRIPTION: RAD - Chest Single View - 01/04/2021 3:02 am CLINICAL HISTORY: Cough;SOB COMPARISON: Two view chest February 2018 TECHNIQUE: AP portable chest image was obtained 01/04/2021 3:02 am . FINDINGS: Exam is significantly limited compared to the prior study. Lung volumes are low, patient i s lordotic on this portable study there significant overlying soft tissue. No peripheral mass or consolidation. Vascular and interstitial pattern not clearly different. Heart s ize is normal range. No measurable pleural effusion and no pneumothorax. No acute bony abnormality se en. No acute aortic findings suspected. IMPRESSION: Limited portable study without acute cardiopulmonary finding.
[2021-01-04] MEDS ORDERED: CEFTRIAXONE 1 GM/NS 50 ML 1 GM/50 ML BAG IV SCH (09:00)
[2021-01-04] MEDS: MORPHINE 4 MG/ML SYR IV PRN (11:57)
[2021-01-04] MEDS: D5 0.45 NS 1,000 ML IV SCH ×2 (11:58→16:00)
[2021-01-04] MEDS: DULERA 200/5 (MOMETASONE/FORMOTEROL) INHALER IH SCH ×2 (11:58→21:00)
[2021-01-04] MEDS: CEFTRIAXONE/SWI 1gm 1 GM/10 ML SYR IVP SCH (16:42)
[2021-01-04] MEDS: ENOXAPARIN 40 MG/0.4 ML SQ SCH (16:43)
--- NOTE | 2021-01-04 19:44 | HP ---
Date of Admission: 01/04/2021 Chief Complaint: Cough, congestion, shortness of breath, wheezing, and fever. History Of Present Illness: This is a 70-year-old pleasant female patient, who has history of asthma, takes her medications regularly, but still has some symptoms of asthma with cough, chest congestion and wheezing from time to time. As of yesterday, she started to have fever and chills and pain in her both lower lateral rib cages with coughing and breathing. The patient came into emergency room with this. After she was evaluated, she was admitted to the hospital with pneumonia and acute exacerbation of asthma. She was also diagnosed as having urinary tract infection. Allergies: NO KNOWN ALLERGIES. Medications: ProAir inhaler 2 puffs 4 times a day as needed, Symbicort inhaler 2 puffs 2 times a day, Celebrex 200 mg daily, gabapentin 100 mg 2 times a day, losartan/HCTZ 50/12.5 one tablet by mouth daily. Review of Systems: Respiratory: As mentioned. Above all other systems reviewed and negative. Past Medical History: Significant for mild persistent asthma, hypertension, hyperlipidemia, cancer of cervix, lumbar spinal stenosis, osteoarthritis at multiple sites, and vitamin D deficiency. Past Surgical History: Hernia repair, surgery for cervical cancer in 1976, and carpal tunnel release. Family History: Father had prostate cancer. Mother had breast cancer. Social History: Negative for smoking. Use of alcohol very rarely. Immunization History: The patient had her COVID-19 vaccine. The first dose was on September 23, 2020 and second dose October 21, 2020. Physical Examination: Vital Signs: Upon admission; initial temperature was 100.1, pulse 124, respiratory rate 18, blood pressure 159/79, oxygen saturation 97%. Height 5 feet 2 inches, weight 229 pounds. General: Awake, alert, oriented, not in distress. HEENT: Head atraumatic, normocephalic. Conjunctivae nonerythematous. Sclerae white. Mouth, no thrush or edema noted. Ears/Nose, no mass, lesion, discharge noted. Neck: Supple. No JVD, lymph nodes, bruit, thyromegaly noted. Lungs: Bilateral good equal air entry, presence of rales in basal region of the right lung. Not using accessory muscles of respiration. Heart: Normal heart sounds, no murmur or gallop. Abdomen: Soft, bowel sounds normal. No guarding, rigidity, tenderness, mass, hepatosplenomegaly, distention, or bruit noted. Extremities: No leg edema. No calf tenderness. Skin: No rash, ulcer, cellulitis. Lymphatics: No lymph node enlargement in neck, supraclavicular, infraclavicular region. Neuro: No focal neurological deficit. Chest: Unremarkable. External Genitalia: Deferred. Rectal: Deferred. Laboratory Data: White count 17.1, hemoglobin 13, platelets 354. Sodium 139, potassium 4, chloride 106, bicarb 27, BUN 11, creatinine 0.76, glucose 122. Liver function tests unremarkable. Troponin less than 0.02. Urinalysis positive for nitrite, leukocyte esterase trace, WBC 10-20, bacteria loaded. COVID-19 test negative. Chest x-ray, no acute cardiopulmonary changes. CAT scan of the chest per PE protocol, no evidence of pulmonary emboli, but presence of right lower lobe infiltrate noted and 1.9 cm right thyroid nodule present. CAT scan of the abdomen and pelvis shows diverticulosis and evidence of some sclerotic pelvic bones and degenerative changes of lumbar spine. Impression: 1. Pneumonia. 2. Urinary tract infection. 3. Mild persistent asthma, with acute exacerbation. 4. Hypertension. 5. Hyperlipidemia. 6. Osteoarthritis, multiple sites. 7. Lumbar spinal stenosis. Plan: We will admit the patient to hospital for further evaluation and management of this problem. The patient is appropriate for inpatient and is expected to spend 2 midnights in hospital. We will go ahead and give her empiric antibiotic which is ceftriaxone and azithromycin, follow up on culture results. We will follow up on chest x-ray also. Nebulizer treatment will be given per order. DVT prophylaxis with Lovenox will be given per order. We will continue home medications per order. The patient says that she is using Symbicort at home, which she has picked up samples from office, but it has really not helped her asthma symptoms as well. We have tried multiple other inhalers like Symbicort, but her insurance does not have good coverage and it is extremely costly, so she is not able to afford those. We did talk about option of nebulizer treatment for her to use it on a regular basis and she has nebulizer at home so we will go ahead and consider her nebulizer treatment on an ongoing basis for her since she can afford that. We will go ahead and get a pelvis x-ray and the patient should also get thyroid ultrasound for evaluation of thyroid nodule. All those details were discussed with her. I have reviewed her prior hospital records. She had pelvis x-ray in 2019 and it did not report any sclerotic changes in the pelvic bones at that time. NELA/GI Voice ID: [id number] VALE
--- NOTE | 2021-01-04 20:23 | RAD REPORT ---
EXAM DESCRIPTION: RAD - Pelvis W/obliques - 01/04/2021 7:53 pm CLINICAL HISTORY: abnormal CT scan COMPARISON: Pelvis dated 10/30/2018; Abdomen Pelvis W Contrast dated 01/04/2021; Chest For Pe Angio dated 01/04/2021 TECHNIQUE: AP and bilateral oblique views of the pelvis obtained. FINDINGS: Patient has advanced lower lumbar degenerative change only partially imaged on this study. Moderate SI joint degenerative changes are present. Hip joint and pubic symphysis degenerative daily es are relatively mild. [place] appears relatively thickened in the pelvis and there are areas of s clerotic and lytic change seen. The January 04 CT images were reviewed. Areas of sclerotic and lucent bone change are identifiable. Focal blastic changes are evident in the pelvis and in the intertrochanteric region of the right femur. Th ere are blastic or sclerotic areas in the lateral left second and third ribs. There is questionable c ortical disruption posterior left fifth rib. Paget's disease would be a consideration for these findings. However, metastatic disease is a possibi lity and correlation with clinical presentation. IMPRESSION: Abnormal pelvis and proximal femurs with changes suspicious for Paget's disease. Sclerotic focus in the pelvis and ribs as well as possible cortical disruption in a rib raise concern for bony metastatic disease.
[2021-01-05] MEDS: MORPHINE 4 MG/ML SYR IV PRN ×2 (03:00→08:44)
[2021-01-05] MEDS: CEFTRIAXONE/SWI 1gm 1 GM/10 ML SYR IVP SCH ×2 (05:00→16:18)
[2021-01-05 05:25] LABS: Absolute Lymphocytes (CBC) 2.1 K/uL (0.7-4.9); Basophils % 0.7 % (0-1.3); Hematocrit 33.5 % (36.0-45.0); RBC Red Blood Cell Count 4.19 M/uL (3.86-4.86)
[2021-01-05 05:49] LABS: BUN Blood Urea Nitrogen 8 mg/dL (7-18); Bicarbonate 29 mmol/L (21-32); Glucose Level 103 mg/dL (74-106); NT PRO-BNP 303 pg/mL (<125); Potassium 4.2 mmol/L (3.5-5.1); Sodium Level 142 mmol/L (136-145)
[2021-01-05] MEDS ORDERED: AZITHROMYCIN IV 250 MG in NA CHLORIDE 0.9% 250 ML IVPB SCH (06:00)
[2021-01-05] MEDS: LOSARTAN/HCTZ 50-12.5 PO SCH (08:40)
[2021-01-05] MEDS: DULERA 200/5 (MOMETASONE/FORMOTEROL) INHALER IH SCH ×2 (08:42→20:28)
[2021-01-05] MEDS: AZITHROMYCIN IV 250 MG in NA CHLORIDE 0.9% 250 ML IVPB SCH (08:43)
--- NOTE | 2021-01-05 08:59 | RAD REPORT ---
EXAM DESCRIPTION: US - Thyroid Para Parotid Gland - 01/05/2021 8:41 am CLINICAL HISTORY: E04.1 COMPARISON: 2019 FINDINGS: The right lobe of the thyroid measures 4.9 x 2.3 x 3.1 centimeters. 2.3 centimeter hypo to isoechoic nodule contains a 1 centimeters cystic component. 2.8 centimeter mostly isoechoic nodule c ontains a couple of small cystic areas. 1.8 centimeter isoechoic nodule contains a small cystic area The left lobe of the thyroid measures 3.1 x 1.9 x 1.6 centimeters. 9 millimeter isoechoic nodule. IMPRESSION: Multiple bilateral thyroid nodules probably benign. Follow-up ultrasound in 1 year recom mended to assess stability
--- NOTE | 2021-01-05 10:58 | RAD REPORT ---
EXAM DESCRIPTION: CT - Chest For Pe Angio - 01/04/2021 6:48 am COMPARISON: None. CLINICAL HISTORY: [facility] MAIN Cough;SOB TECHNIQUE: CT images through the chest with IV contrast using the pulmonary embolus protocol. Multip lanar reformats. Automated exposure control was utilized on this examination as a dose lowering genevieve hnique. FINDINGS: Pulmonary arteries and vascular: Diagnostic quality bolus. No filling defects. Mild athero sclerosis. Heart and mediastinum: Heart size is enlarged. Mediastinal lymph nodes are likely reactive. Thyroid gland: There is a 1.9 cm right thyroid nodule. Lungs: There is consolidation of the medial right lower lobe. Airways: No filling defects. No bronchiectasis. Pleura: No pneumothorax. No significant pleural effusion. Subphrenic structures: Within normal limits. Musculoskeletal and soft tissues: Multiple anterior flowing osteophytes are present, compatible with DISH. IMPRESSION: 1. No evidence of pulmonary embolus. Limited evaluation for distal branch emboli due to bolus timing and motion artifact. 2. Right lower lobe pneumonia. 2. 1.9 cm right thyroid nodule. Recommend thyroid ultrasound. Electronically signed by: Edi Etienne MD 01/04/2021 4:58 AM CDT Due to temporary technical issues with the PACS/Fluency reporting system, reports are being signed by the in house radiologist without review as a courtesy to ensure prompt reporting. The interpreting r adiologist is fully responsible for the content of the report.
--- NOTE | 2021-01-05 10:58 | RAD REPORT ---
EXAM DESCRIPTION: CT - Abdomen Pelvis W Contrast - 01/04/2021 6:48 am COMPARISON: None. CLINICAL HISTORY: [facility] MAIN Abd pain;Flank pain TECHNIQUE: CT of the abdomen and pelvis was acquired with IV contrast material. Coronal and sagittal reconstructions were obtained. Automated exposure control was utilized on this examination as a do se lowering technique. FINDINGS: Lung bases: Cardiomegaly. There is atelectasis or consolidation of the medial right lower lobe. Liver: There is a 1.2 cm right hepatic hypodensity, likely representing a benign cyst or hemangioma. Gallbladder and biliary: Normal gallbladder. Unremarkable biliary tree. Pancreas: Normal. Spleen: Normal. Adrenal glands: Normal. Kidneys and ureters: Chronic inferior right renal scarring is noted. There is a 3.7 cm left renal c yst. There is a subcentimeter right renal cyst. Stomach and Small Bowel: The stomach and small bowel are normal. Urinary bladder: Normal. Uterus and Adnexa: Hysterectomy. Colon and Appendix: Severe descending and sigmoid diverticulosis. No evidence of appendicitis. Peritoneal cavity: No ascites or free air. Retroperitoneum and lymph nodes: Normal. Vascular: Normal. Musculoskeletal and soft tissues: There are surgical changes of the ventral abdomen. There is a 9.5 x 8.3 x 13.4 cm intramuscular lipoma of the left flank (latissimus dorsi). Lumbar spondylosis is prese nt. There is grade 1 anterolisthesis L4 on L5. There are sclerotic changes of the bilateral litzy with areas of lucency. The largest lucency, left ilium measures 1.1 cm on series 603 image 55. The larges t sclerotic lesion, right ilium measures 1.2 cm on series 601 image 66. No compression fracture. IMPRESSION: 1. No acute intra-abdominal abnormality. 2. Cardiomegaly. 3. Atelectasis or consolidation of the medial right lower lobe. 4. Severe colonic diverticulosis. 5. 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 6. Sclerotic changes of the pelvic bones with areas of lucency. This could be due to medication, meta bolic abnormality, Paget's disease, or less likely metastases. Electronically signed by: Edi Etienne MD 01/04/2021 4:52 AM CDT Due to temporary technical issues with the PACS/Fluency reporting system, reports are being signed by the in house radiologist without review as a courtesy to ensure prompt reporting. The interpreting r adiologist is fully responsible for the content of the report.
--- NOTE | 2021-01-05 14:11 | RAD REPORT ---
EXAM DESCRIPTION: NM - Bone Imaging Whole Body - 01/05/2021 2:01 pm CLINICAL HISTORY: Rule out mets Bone pain COMPARISON: No comparisons TECHNIQUE: The patient was administered approximately 25 mCi Tc 99m MDP. Anterior and posterior whol e-body views were obtained at 3-4 hours. FINDINGS: Physiologic distribution of the radiopharmaceutical is noted with the expected amount of k idney and urinary bladder activity. Radiopharmaceutical uptake is noted in both shoulders, both elbows, the wrists and hands as well as b oth knees was ankle feet. This has the appearance of arthritic changes. Inflammatory arthropathy is a possibility. No abnormal activity seen to suspect metastatic or metabolic bone disease. IMPRESSION: No findings suspicious for osseous metastatic disease is identified.
[2021-01-05] MEDS: ENOXAPARIN 40 MG/0.4 ML SQ SCH (16:19)
--- NOTE | 2021-01-05 23:25 | PN ---
Date of Progress Note: 01/05/2021 Subjective: Patient was seen for followup this morning. She is lying in bed not in distress. She s till has some pleuritic chest pain. Overall, she feels better. Objective: Vital Signs: Reviewed. HEENT: Unremarkable. Lungs: Clear to auscultation except right basal rales. Cardiac: Heart sounds normal. Abdomen: Soft, bowel sounds normal. No guarding, rigidity, tenderness, or distention. Extremities: No leg edema. Laboratory Data: White count 11.1, hemoglobin 11.5 platelets 31. Sodium 142, potassium 4.2, chlorid e 108, bicarb 29, BUN 8, creatinine 0.63, glucose 102. Her pelvis x-ray shows abnormal pelvis and pr oximal femur with changes suspicious for Paget's disease and the radiologist also reviewed CAT scan f inding and reported that patient was noted to have sclerotic focus in the pelvis and ribs with possib le cortical disruption in the rib raising possibility of metastatic disease. After this, we did get a bone scan today and bone scan has not shown any changes, any evidence of metastatic disease. Impression: 1.Pneumonia. 2.Mild persistent asthma, with acute exacerbation. 3.Hypertension. Plan: We will go ahead and continue current medications. Continue current antibiotics and nebulizer treatment and inhaler. Thyroid ultrasound shows thyroid nodule. We will continue to follow up on i t. No need for further intervention and the patient has probably underlying Paget's disease, but no evidence of metastatic disease at this point. No need for any intervention. I will see her tomorrow for followup and possible discharge to go home tomorrow depending on her condition. NELA/MODL Voice ID: [id number] Report ID: [id number]
[2021-01-06] MEDS: CEFTRIAXONE/SWI 1gm 1 GM/10 ML SYR IVP SCH (04:51)
[2021-01-06 08:21] VITALS: TEMP 98.4
[2021-01-06] MEDS: AZITHROMYCIN IV 250 MG in NA CHLORIDE 0.9% 250 ML IVPB SCH (11:08)
[2021-01-06] MEDS: LOSARTAN/HCTZ 50-12.5 PO SCH (11:09)
[2021-01-06 11:23] VITALS: O2SAT 94
[2021-01-06] MEDS: DULERA 200/5 (MOMETASONE/FORMOTEROL) INHALER IH SCH (11:27)
[2021-01-06 12:21] VITALS: BP 148/70
--- NOTE | 2021-01-07 10:06 | DS ---
Date of Discharge: 01/06/2021 Disposition: Discharged to go home. Physical Examination: HEENT: Unremarkable. Lungs: Clear to auscultation. Heart: Sounds normal. Abdomen: Soft. Bowel sounds normal. No guarding, rigidity, tenderness, or distention. Extremities: No leg edema. Discharge Medications And Instructions: 1.Continue prior home medications. 2.The patient to take Levaquin 500 mg daily for 1 week. 3.Albuterol and Atrovent nebulizer treatment 4 times a day as needed for shortness of breath. 4.Pulmicort nebulizer treatment 2 times a day. 5.Follow up at my office next week on 01/12/2021 at 9 a.m.. Laboratory Data: Labs done during this hospitalization upon admission; white count was 17.1, hemoglo bin 13, platelets 354 and on 01/05/2021; white count was 11.1, hemoglobin 11.5, platelets 319. Chemi stry upon admission; sodium 139, potassium 4, chloride 106, bicarb 27, BUN 11, creatinine 0.76, gluco se 122. Liver function tests unremarkable. Troponin less than 0.02. Hospital Course: This is a 70-year-old pleasant female patient, admitted to the hospital with compla ints of cough, congestion, shortness of breath, wheezing, and fever. Please see dictated H and P for more information. After the patient was evaluated in ER, she was admitted to the hospital. Her preet st x-ray and CAT scan of the chest, which were done per PE protocol showed right lower lobe pneumonia , there was no evidence of pulmonary embolism. The patient had a CAT scan of abdomen and pelvis done , which showed the pelvis bone structure looked abnormal as if this could be due to Paget disease. T here was some abnormality detected on the ribs on the CAT scan raising possibility of any metastatic disease. It also showed 1.9 cm right thyroid nodule. Thyroid ultrasound showed bilateral benign eleni earing nodules. No evidence of further intervention, except we will continue to monitor that. We di d a bone scan and pelvis x-ray. Pelvis x-ray showed some sclerotic bones in the pelvis indicating po ssibility of Paget disease and bone scan reported as no findings suspicious for any metastatic diseas e. Urine culture came back growing E coli today. Overall, the patient's condition has improved and she was discharged to go home in stable condition. During this hospitalization, she was given IV cef triaxone and azithromycin. Final Diagnoses: 1.Pneumonia. 2.Urinary tract infection, organism Escherichia coli. 3.Anemia, unspecified. 4.Mild persistent asthma, with acute exacerbation. 5.Thyroid nodule. 6.Hyperlipidemia. 7.Osteoarthritis, multiple sites. 8.Hypertension. NELA/MODL Voice ID: [id number] Report ID: [id number]
== END 2021-01-06 16:15 | disposition home or self-care (01) | DRG 202 ==
LOC: ER 01:50 → ERHOLD 05:16 → 2ND 07:37
PROVIDERS: ADMIT Internal Medicine; ATTEND Internal Medicine
DX: J45.31 Mild persistent asthma with (acute) exacerbation (principal); J18.9 Pneumonia, unspecified organism; N39.0 Urinary tract infection, site not specified; M19.90 Unspecified osteoarthritis, unspecified site; D64.9 Anemia, unspecified; E04.1 Nontoxic single thyroid nodule; E78.5 Hyperlipidemia, unspecified; I10 Essential (primary) hypertension; B96.20 Unspecified Escherichia coli [E. coli] as the cause of diseases classified elsewhere; Z79.899 Other long term (current) drug therapy; Z79.51 Long term (current) use of inhaled steroids; Z85.41 Personal history of malignant neoplasm of cervix uteri; Z20.822 Contact with and (suspected) exposure to COVID-19
CPT/HCPCS: 36415; 71045; 71275; 72190; 74177; 76536; 78306; 80048; 80076; 81003; 81015; 83605; 83735; 83880; 84484; 85025; 85610; 87040; 87077; 87086; 87088; 87186; 93005; 94760; 96361; 96365; 96375; 99285; A9503; J0456; J0696; J1650; J2405; J7030; J7040; J7050; J7606; J7799; Q9967; U0003